=== PATIENT | male | born 1975 | race American Indian/Alaskan Native ===

== ENCOUNTER 2018-01-30 19:53 | Inpatient (IN) | payer OTHER ==
--- NOTE | 2018-01-30 20:14 | Emergency Department Report ---
- General Stated complaint: POSSIBLE STROKE Time Seen by Provider: 01/30/18 19:54 Source: patient, EMS Mode of arrival: Stretcher Limitations: Physical Limitation - History of Present Illness Initial comments: She is a 42-year-old male that presents emergency room possible strokelike symptoms and left-sided weakness and left-sided facial droop. EMS and the patient state that the last known well time was 1914. Patient denies chest pain shortness of breath. Patient states he is having difficulties walking. Patient states 7 difficulties moving his left side. Patient states he can move his right side normally but the left side is not moving as well. Patient denies headache. Patient denies dizziness and chills. Patient denies fever and abdominal pain. MD Complaint: focal weakness (sided weakness and left-sided facial droop) -: Sudden Location: [facility] Severity: severe Consistency: constant Improves with: none Worsens with: none Associated Symptoms: denies: chest pain, confusion, dark stools, diaphoresis, dysuria, easy bruising, fever/chills, headaches, loss of appetite, nausea/ vomiting, myalgias, rash, shortness of breath, syncope - Related Data Home Medications Medication Instructions Recorded Confirmed Last Taken Aspirin 325 mg PO QDAY 01/30/18 01/30/18 Unknown Benzonatate [Tessalon Perles] 100 mg PO TID PRN 01/30/18 01/30/18 Unknown Carvedilol 25 mg PO BID 01/30/18 01/30/18 Unknown ISOSORBIDE MONOnitrate [Imdur ER] 60 mg PO DAILY 01/30/18 01/30/18 Unknown Sacubitril/Valsartan [Entresto 97 1 each PO BID 01/30/18 01/30/18 Unknown mg-103 mg Tablet] hydrALAZINE [Apresoline] 25 mg PO TID 01/30/18 01/30/18 Unknown Previous Rx's Medication Instructions Recorded Last Taken Type Furosemide [Lasix TAB] 40 mg PO QDAY #30 tablet 11/23/15 Unknown Rx Insulin Glargine [Lantus VIAL] 5 units SUB-Q QAMDIAB #2 vial 11/23/15 Unknown Rx Insulin Glulisine [Apidra] 1 dose SUB-Q ACHS #1 vial 11/23/15 Unknown Rx Allergies Allergy/AdvReac Type Severity Reaction Status Date / Time No Known Allergies Allergy Verified 08/19/15 22:49 ED Review of Systems ROS: Stated complaint: POSSIBLE STROKE Other details as noted in HPI Constitutional: denies: chills, fever Eyes: denies: eye pain, eye discharge, vision change ENT: denies: ear pain, throat pain Respiratory: denies: cough, shortness of breath, wheezing Cardiovascular: denies: chest pain, palpitations Endocrine: no symptoms reported Gastrointestinal: denies: abdominal pain, nausea, diarrhea Genitourinary: denies: urgency, dysuria Musculoskeletal: denies: back pain, joint swelling, arthralgia Skin: denies: rash, lesions Neurological: denies: headache, weakness, paresthesias Psychiatric: denies: anxiety, depression Hematological/Lymphatic: denies: easy bleeding, easy bruising ED Past Medical Hx - Past Medical History Hx Hypertension: Yes Hx Congestive Heart Failure: Yes Hx Diabetes: Yes (2014) Hx Arthritis: Yes Hx Headaches / Migraines: No Hx Asthma: Yes Hx COPD: No - Social History Smoking Status: Never Smoker - Medications Home Medications: Home Medications Medication Instructions Recorded Confirmed Last Taken Type Furosemide [Lasix TAB] 40 mg PO QDAY #30 tablet 11/23/15 Unknown Rx Insulin Glargine [Lantus VIAL] 5 units SUB-Q QAMDIAB #2 vial 11/23/15 Unknown Rx Insulin Glulisine [Apidra] 1 dose SUB-Q ACHS #1 vial 11/23/15 Unknown Rx Aspirin 325 mg PO QDAY 01/30/18 01/30/18 Unknown History Benzonatate [Tessalon Perles] 100 mg PO TID PRN 01/30/18 01/30/18 Unknown History Carvedilol 25 mg PO BID 01/30/18 01/30/18 Unknown History ISOSORBIDE MONOnitrate [Imdur ER] 60 mg PO DAILY 01/30/18 01/30/18 Unknown History Sacubitril/Valsartan [Entresto 97 1 each PO BID 01/30/18 01/30/18 Unknown History mg-103 mg Tablet] hydrALAZINE [Apresoline] 25 mg PO TID 01/30/18 01/30/18 Unknown History ED Physical Exam - General Limitations: Physical Limitation General appearance: alert, in no apparent distress - Head Head exam: Present: atraumatic, normocephalic - Eye Eye exam: Present: normal appearance, PERRL Pupils: Present: normal accommodation - ENT ENT exam: Present: mucous membranes moist - Neck Neck exam: Present: normal inspection - Respiratory Respiratory exam: Present: normal lung sounds bilaterally. Absent: respiratory distress - Cardiovascular Cardiovascular Exam: Present: regular rate, normal rhythm. Absent: systolic murmur, diastolic murmur, rubs, gallop - GI/Abdominal GI/Abdominal exam: Present: soft, normal bowel sounds - Rectal Rectal exam: Present: deferred - Extremities Exam Extremities exam: Present: normal inspection - Back Exam Back exam: Present: normal inspection - Neurological Exam Neurological exam: Present: alert, oriented X3 - Psychiatric Psychiatric exam: Present: normal affect, normal mood - Skin Skin exam: Present: warm, dry, intact, normal color. Absent: rash - Assessment Assessment Interval: Baseline - Level of Consciousness 1a. Level of Consciousness: not alert, arousable - LOC Questions 1b. LOC Questions: answers correctly - LOC Command 1c. LOC Commands: performs tasks correctly - Best Gaze 2. Best Gaze: partial gaze palsy - Visual 3. Visual: no visual loss - Facial Palsy 4. Facial Palsy: partial paralysis - Motor Arm 5b. Motor Arm Right: no drift 5a. Motor Arm Left: no gravity effort - Motor Leg 6a. Motor Leg Left: drift 6b. Motor Leg Right: no drift - Limb Ataxia 7. Limb Ataxia: absent - Sensory 8. Sensory: mild/moderate sensory loss - Best Language 9. Best Language: no aphasia - Dysarthria 10. Dysarthria: mild/moderate dysarthria - Extinction and Inattention 11. Extinction/Inattention: no abnormality - Scoring Total Score: 10 Stroke Severity: Moderate Stroke ED Course Vital Signs 01/30/18 01/30/18 01/30/18 20:01 20:05 20:15 Pulse Rate 88 82 Respiratory 17 22 12 Rate Blood Pressure 203/127 233/164 Blood Pressure [Right] O2 Sat by Pulse 89 90 97 Oximetry 01/30/18 01/30/18 01/30/18 20:31 20:41 20:45 Pulse Rate 88 100 H 87 Respiratory 19 19 Rate Blood Pressure 233/166 233/166 175/112 Blood Pressure [Right] O2 Sat by Pulse 99 98 Oximetry 01/30/18 01/30/18 01/30/18 20:48 20:50 21:01 Pulse Rate 84 83 92 H Respiratory 18 Rate Blood Pressure 176/109 165/104 180/113 Blood Pressure [Right] O2 Sat by Pulse 98 Oximetry 01/30/18 01/30/18 01/30/18 21:29 21:40 21:45 Pulse Rate 111 H 96 H 87 Respiratory 20 18 17 Rate Blood Pressure 171/105 156/91 Blood Pressure 172/95 [Right] O2 Sat by Pulse 97 98 100 Oximetry 01/30/18 01/30/18 01/30/18 22:00 22:15 22:21 Pulse Rate 87 88 81 Respiratory 17 20 17 Rate Blood Pressure 158/108 165/109 165/107 Blood Pressure [Right] O2 Sat by Pulse 99 94 99 Oximetry 01/30/18 01/30/18 01/30/18 22:25 22:30 22:35 Pulse Rate 80 81 80 Respiratory 17 16 16 Rate Blood Pressure 165/108 168/115 169/114 Blood Pressure [Right] O2 Sat by Pulse 100 100 100 Oximetry 01/30/18 01/30/18 22:40 22:45 Pulse Rate 83 78 Respiratory 15 16 Rate Blood Pressure 164/109 162/112 Blood Pressure [Right] O2 Sat by Pulse 99 97 Oximetry - Reevaluation(s) Reevaluation #1: tele- neuro consulted. Discussed case with Dr. Ortega. Dr. Ortega to examine patient via camera. Dr. Ortega given full report. Patient failed swallow study. 01/30/18 20:00 Reevaluation #2: Dr ortega and i discussed risk and benefits of tpa. Family and patient agree with TPA and want to move with TPA. dr ortega recommends tpa after bp below 180/110 and CTA head and neck. 01/30/18 20:30 Reevaluation #3: Nicardipine drip started. We'll keep blood pressure less than 180/110. But no lower than 160/90 01/30/182036 TPA bolus started. See nurse's notes. Patient to have CTA done 01/30/182047 Reevaluation #4: No change in neurologic status at this time. Patient to be admitted to the hospitalist service for further evaluation treatment. 01/30/18 22:11 - Consultations Consultation #1: Discussed case with Dr. Ortega, neurology. She recommends tPA. She also recommends keeping his blood pressure between 160 - 180/90 -110 with Cardene drip. After bolus of TPA, patient to have CTA head and neck. 01/30/18 20:00 Consultation #2: Dr. Ortega called CTA of head and neck results. Dr. Ortega recommends normal admission into the hospital for further stroke evaluation. 01/30/18 22:09 Consultation #3: Hospitalist consulted for admission. Hospitalist to admit patient. Recommendations and case discussed fully with hospitalist.Dr saini to assume care. 01/30/18 22:12 ED Medical Decision Making - Lab Data Result diagrams: 01/30/18 20:09 01/30/18 20:33 - EKG Data -: EKG Interpreted by Co EKG shows normal: sinus rhythm, intervals, QRS complexes, ST-T waves Rate: normal - EKG Data Interpretation: LVH, other (left axis dev. ) - Radiology Data Radiology results: report reviewed CT head negative. Radiologist called at 2019 with results. CTA of the head and neck are negative as well. - Medical Decision Making He is a 42-year-old male presents emergency room with left-sided weakness and found to having an acute stroke. Patient to be admitted to the hospitalist service for further evaluation. Patient was given TPA during his course in the ER. Patient was also started on Cardene prior to giving her TPA bolus and drip. - Differential Diagnosis tia/cva. dehydration. ams. Critical Care Time: Yes Critical care attestation.: If time is entered above; I have spent that time in minutes in the direct care of this critically ill patient, excluding procedure time. Critical Care Time: 45 minutes spent for cc time ED Disposition Clinical Impression: Left-sided weakness, Malignant hypertension CVA (cerebral vascular accident) Qualifiers: CVA mechanism: unspecified Qualified Code(s): I63.9 - Cerebral infarction, unspecified Disposition: OP ADMIT IP TO THIS HOSP Is pt being admited?: Yes Does the pt Need Aspirin: No Condition: Critical Instructions: Hypertension (ED) Time of Disposition: 22:16
[2018-01-30] MEDS ORDERED: LOPRESSOR IV ONE (20:19)
--- NOTE | 2018-01-30 20:24 | Cat Scan Report ---
FINAL REPORT EXAM: CT HEAD/BRAIN WO CON HISTORY: neuro deficits < 6hrs or sx present upon awakening COMPARISON: None available. TECHNIQUE: Axial images obtained skull base through vertex. FINDINGS: No acute intracranial hemorrhage, midline shift or pathologic extra axial fluid collection. Ventricles and cisterns are normal in size and configuration for the patient's age. Soto-white differentiation preserved. Calvarium grossly intact. No hyperdense MCA sign or loss of the subinsular cortex. Ocular globes are grossly unremarkable. Moderate air-fluid level right maxillary sinus. Mastoid air cells are clear. IMPRESSION: No grossly acute intracranial abnormality. No evidence of acute transcortical infarct or intracranial hemorrhage by CT at this time. If clinical concern for acute intracranial process remains, MRI would be suggested for further evaluation. LALY OSR notified of results on January 30, 2018 at 2016 hours EST.
[2018-01-30] MEDS ORDERED: ACTIVASE ONE (20:26)
[2018-01-30 20:29] LABS: BUN/Creatinine Ratio 11; Blood Urea Nitrogen 12 mg/dL (9-20); Calcium 10.3 mg/dL (8.4-10.2); Hemolysis Index 28
[2018-01-30 20:35] LABS: Basophils # (Auto) 0.1 K/mm3 (0.0-0.1); Basophils % (Auto) 0.8 % (0.0-1.8); Eosinophils # (Auto) 0.1 K/mm3 (0.0-0.4); Eosinophils % (Auto) 1.4 % (0.0-4.3); Hematocrit 50.4 % (35.5-45.6); Lymphocytes # (Auto) 2.1 K/mm3 (1.2-5.4); Lymphocytes % (Auto) 28.1 % (13.4-35.0); Mean Corpuscular HGB Conc 34 % (32-34); Mean Corpuscular Hemoglobin 28 pg (28-32); Mean Corpuscular Volume 83 fl (84-94); Monocytes # (Auto) 0.8 K/mm3 (0.0-0.8); Monocytes % (Auto) 10.8 % (0.0-7.3); Platelet Count 248 K/mm3 (140-440); Red Blood Count 6.08 M/mm3 (3.65-5.03)
[2018-01-30 20:37] LABS: INR 1.01 (0.87-1.13); Partial Thromboplastin Time 20.9 Sec. (24.2-36.6)
[2018-01-30] MEDS: CARDENE 50 MG in NACL 0.9% 250ML 230 ML IV SCH (20:37)
[2018-01-30] MEDS: LOPRESSOR IV ONE ×2 (20:37→20:41)
[2018-01-30] MEDS ORDERED: NACL 0.9% 250ML 250 ML ONE (20:44)
[2018-01-30] MEDS ORDERED: ACTIVASE IV ONE ×2 (20:48)
[2018-01-30] MEDS ORDERED: NACL 0.9% IV ONE (20:48)
[2018-01-30 21:05] LABS: Alanine Aminotransferase 18 units/L (7-56); Albumin 3.9 g/dL (3.9-5); BUN/Creatinine Ratio 12; Blood Urea Nitrogen 13 mg/dL (9-20); Calcium 10.5 mg/dL (8.4-10.2); Hemolysis Index 35
--- NOTE | 2018-01-30 22:00 | Cat Scan Report ---
FINAL REPORT EXAM: CT ANGIO NECK HISTORY: cva COMPARISON: CT of the chest from November 2015. TECHNIQUE: Contiguous axial images were obtained. Additional sagittal and coronal reformatted images were obtained. Administration of IV contrast given per institution protocol. Images submitted for interpretation. Max intensity projection images. 100 cc Omnipaque 350. FINDINGS: Extracranial portions of the common carotid, internal carotid, vertebral arteries widely patent. Codominant vertebral arteries. Carotid bifurcations are widely patent. Slight tortuous course of the internal carotid arteries. Spaces of the neck are preserved. Upper airway is patent. No enlarged cervical lymph nodes. Salivary glands and thyroid gland are unremarkable. Patchy linear densities in the visualized upper lungs which may reflect areas of atelectasis. Minimal degenerative changes of the cervical spine. Multiple enlarged right mediastinal lymph nodes. For example there is a right paratracheal lymph node measuring 11 x 13 millimeters. Similar findings seen on prior chest CT from November 2015. IMPRESSION: Negative CTA of the neck. Partial visualization of enlarged mediastinal lymph nodes. Similar findings seen on the CT of the chest from 2016. These lymph nodes could be reactive. Neoplastic process such as lymphoma is not excluded.
--- NOTE | 2018-01-30 22:02 | Cat Scan Report ---
FINAL REPORT EXAM: CT ANGIO HEAD HISTORY: cva COMPARISON: None available. TECHNIQUE: Contiguous axial images were obtained. Additional sagittal and coronal reformatted images were obtained. Administration of IV contrast given per institution protocol. Images submitted for interpretation. Max intensity projection images. FINDINGS: Petrous, cavernous, supraclinoid portions of the internal carotid arteries widely patent. origins of the bilateral posterior communicating arteries. Small P1 segments remain. Dominance of the anterior circulation. Decrease caliber the vertebral basilar system on a congenital basis. Intracranial portions the vertebral arteries and basilar artery are widely patent. Symmetric branching and opacification of the anterior, middle, posterior cerebral arteries. Gross normal opacification major dural venous sinuses. No area of abnormal hypervascular enhancement within the brain parenchyma. IMPRESSION: Negative CTA of the head.
[2018-01-30] MEDS ORDERED: TYLENOL PR PRN (23:20)
--- NOTE | 2018-01-31 06:36 | History and Physical Report ---
CHIEF COMPLAINT: Weakness of the left side of the body and left-sided facial drooping. HISTORY OF PRESENTING ILLNESS: The patient is a 42-year-old male that came to the Emergency Room with left-sided weakness and drooping of the left side of the face. The patient was well until the time of about 191 when these symptoms occur. There was no history of shortness of breath. No history of chest pain. The patient also noted difficulty with walking and had difficulty moving his left side of the body, but was able to move his right side normally. There was no history of headache, no history of dizziness, fever or chills and also there was no history of change in mental status. The patient was seen in the Emergency Room, evaluated with Tele-Neurology consult and patient received TPA treatment. PAST MEDICAL HISTORY: Pertinent for hypertension, congestive heart failure, diabetes mellitus, arthritis, and asthma. PAST SURGICAL HISTORY: Unremarkable. FAMILY HISTORY: Noncontributory. SOCIAL HISTORY: The patient does not smoke, does not drink alcohol, and does not use illicit drugs. MEDICATIONS: The patient is on Lasix 40 mg by mouth daily, Lantus insulin 5 units subq q.a.m. and also insulin glulisine or Apidra subq before meals and at bedtime. The patient is also on aspirin 325 mg by mouth daily, benzonatate 100 mg 3 times daily, carvedilol 25 mg by mouth twice daily, isosorbide mononitrate or Imdur ER 60 mg by mouth daily, (sacubitril/valsartan) Entresto 97 mg-103 mg one by mouth twice daily, hydralazine 25 mg by mouth 3 times daily. ALLERGIES: There are no known drug allergies. REVIEW OF SYSTEMS: CONSTITUTIONAL: There is no fever, no chills, no diaphoresis. HEENT: There is no headache or sore throat. CARDIOVASCULAR SYSTEM: There is no chest pain or orthopnea. RESPIRATORY SYSTEM: There is no shortness of breath or cough. GASTROINTESTINAL SYSTEM: There is no nausea, no vomiting, no abdominal pain, diarrhea, or constipation. NEUROLOGICAL SYSTEM: Weakness of the left side of the body noted, drooling of the left side of the face noted. No change in mental status. MUSCULOSKELETAL SYSTEM: There is no joint pain or swelling. DERMATOLOGICAL SYSTEM: There is no skin rash or itching. GENITOURINARY SYSTEM: There is no dysuria, hematuria, or flank pain. Rest of system review is normal. PHYSICAL EXAMINATION: GENERAL: At the time of exam, the patient was sleeping on his bed quietly and not in acute distress. VITAL SIGNS: At the time of initial presentation, temperature of 88, pulse of 17, blood pressure 203/127, O2 sat of 89% on room air. HEENT: Show pupils to be equal, round, and reactive to light and accommodation. Extraocular muscles are intact. NECK: Supple with no JVD or carotid bruit. CARDIOVASCULAR SYSTEM: Show normal first and second heart sounds with no gallops or murmurs. RESPIRATORY SYSTEM: Show good air entry on both sides of the lungs with no abnormal breath sounds. GASTROINTESTINAL SYSTEM: Show abdomen to be full, soft, nontender with no organomegaly or rigidity. NEUROLOGIC: Shows weakness of the left side of the body compared to the right with grade 4/6 on the left side compared to the 6/6 on the right and sensory function was intact. MUSCULOSKELETAL SYSTEM: Show no joint swelling or tenderness. DERMATOLOGICAL SYSTEM: Show no skin rash. GENITOURINARY SYSTEM: Showing no costovertebral angle tenderness. PERTINENT LABORATORY DATA AND IMAGING STUDIES: The patient has CBC done with normal white count, high hemoglobin of 17, and high hematocrit of 50.4 with low MCV of 83 with CBC differential showing high monocyte count of 10.8%. Coagulation studies were unremarkable. Chemistry shows elevated glucose of 139. The patient's calcium level is high with a value of 10.5. IMAGING STUDIES: The patient has CT of the head without contrast done that shows no grossly acute intracranial abnormality. There is no evidence of acute transcortical infarct or intracranial hemorrhage by CT at this time. The patient also had CT angiogram of the head and neck done that came back negative for any abnormality. DIAGNOSES: 1. Left-sided weakness. 2. Hypercalcemia. 3. Polycythemia. PLAN OF CARE: 1. The patient will have the MRI of the brain done this morning without contrast. 2. The patient will have Neurology consult with Dr. Cervantes for treatment of left-sided weakness and left facial drooping with TPA treatment. 3. The patient will have bilateral carotid Doppler done this morning. 4. The patient will have complete 2D echo done this morning. 5. The patient will have Hematology consult with Dr. Maxwell for polycythemia. 6. The patient will be on sequential compressive device for DVT prophylaxis. 7. The patient will have Physical Therapy and Speech Therapy consult for evaluation and treatment. 8. The patient will be n.p.o. until he passes the swallow test. 9. The patient will be on oxygen by the nasal cannula at 2 liters per minute. 10. The patient will continue Cardene drip started in the Emergency Room with instructions to keep systolic blood pressure between 160 and 180 according to the Tele-Neurology recommendation and keep the diastolic pressure at above 110. 11. The patient will be on Tylenol suppository 650 mg rectally every 4 hours for fever and headache. JOB# [id number] OCN/NTS
--- NOTE | 2018-01-31 09:09 | Hem/Onc Consultation ---
History of Present Illness - Reason for Consult Consult date: 01/31/18 - History of Present Illness dictated. We will follow hemoglobin and hematocrit. Check erythropoietin level and Jak2 Medications and Allergies Allergies Allergy/AdvReac Type Severity Reaction Status Date / Time No Known Allergies Allergy Verified 08/19/15 22:49 Home Medications Medication Instructions Recorded Confirmed Last Taken Type Furosemide [Lasix TAB] 40 mg PO QDAY #30 tablet 11/23/15 01/30/18 Unknown Rx Insulin Glargine [Lantus VIAL] 5 units SUB-Q QAMDIAB #2 vial 11/23/15 01/30/18 Unknown Rx Insulin Glulisine [Apidra] 1 dose SUB-Q ACHS #1 vial 11/23/15 01/30/18 Unknown Rx Aspirin 325 mg PO QDAY 01/30/18 01/30/18 Unknown History Benzonatate [Tessalon Perles] 100 mg PO TID PRN 01/30/18 01/30/18 Unknown History Carvedilol 25 mg PO BID 01/30/18 01/30/18 Unknown History ISOSORBIDE MONOnitrate [Imdur ER] 60 mg PO DAILY 01/30/18 01/30/18 Unknown History Sacubitril/Valsartan [Entresto 97 1 each PO BID 01/30/18 01/30/18 Unknown History mg-103 mg Tablet] hydrALAZINE [Apresoline] 25 mg PO TID 01/30/18 01/30/18 Unknown History Active Meds: Active Medications Acetaminophen (Tylenol) 650 mg AR Q4H PRN PRN Reason: Fever >101 Nicardipine HCl 50 mg/ Sodium (Chloride) 250 mls @ 25 mls/hr IV TITR TUAN; Protocol Last Titration: 01/31/18 08:05 Dose: 2.5 mg/hr, 12.5 mls/hr Exam - Constitutional Vitals: Last Vital Signs Temp 98.5 F 01/31/18 08:06 Pulse 78 01/31/18 08:06 Resp 20 01/31/18 08:06 BP 177/122 01/31/18 08:06 Pulse Ox 98 01/31/18 08:06 Results - Labs lab Results: Laboratory Results - last 24 hr 01/30/18 01/30/18 01/30/18 20:09 20:09 20:09 WBC 7.6 RBC 6.08 H Hgb 17.0 H Hct 50.4 H MCV 83 L MCH 28 MCHC 34 RDW 16.0 H Plt Count 248 Lymph % (Auto) 28.1 [place] % (Auto) 10.8 H Eos % (Auto) 1.4 Baso % (Auto) 0.8 Lymph # 2.1 [place] # 0.8 Eos # 0.1 Baso # 0.1 Seg Neutrophils % 58.9 Seg Neutrophils # 4.5 PT 13.8 INR 1.01 APTT 20.9 L Thrombin Time Sodium 142 Potassium 4.1 Chloride 104.5 Carbon Dioxide 26 Anion Gap 16 BUN 12 Creatinine 1.1 Estimated GFR > 60 BUN/Creatinine Ratio 11 Glucose 138 H POC Glucose Calcium 10.3 H Total Bilirubin AST ALT Alkaline Phosphatase Troponin T < 0.010 Total Protein Albumin Albumin/Globulin Ratio 01/30/18 01/30/18 01/30/18 20:09 20:09 20:33 WBC RBC Hgb Hct MCV MCH MCHC RDW Plt Count Lymph % (Auto) [place] % (Auto) Eos % (Auto) Baso % (Auto) Lymph # [place] # Eos # Baso # Seg Neutrophils % Seg Neutrophils # PT INR APTT Thrombin Time 17.4 Sodium 143 Potassium 4.3 Chloride 103.9 Carbon Dioxide 26 Anion Gap 17 BUN 13 Creatinine 1.1 Estimated GFR > 60 BUN/Creatinine Ratio 12 Glucose 139 H POC Glucose 139 H Calcium 10.5 H Total Bilirubin 1.10 AST 15 ALT 18 Alkaline Phosphatase 42 Troponin T Total Protein 5.9 L Albumin 3.9 Albumin/Globulin Ratio 2.0 01/31/18 01/31/18 07:00 08:05 WBC RBC Hgb Hct MCV MCH MCHC RDW Plt Count Lymph % (Auto) [place] % (Auto) Eos % (Auto) Baso % (Auto) Lymph # [place] # Eos # Baso # Seg Neutrophils % Seg Neutrophils # PT INR APTT Thrombin Time Sodium Potassium Chloride Carbon Dioxide Anion Gap BUN Creatinine Estimated GFR BUN/Creatinine Ratio Glucose POC Glucose 143 H 174 H Calcium Total Bilirubin AST ALT Alkaline Phosphatase Troponin T Total Protein Albumin Albumin/Globulin Ratio
--- NOTE | 2018-01-31 11:00 | Consultation ---
REFERRING PHYSICIAN: Varghese Davidson MD REASON FOR CONSULTATION: Erythrocytosis and CVA. HISTORY OF PRESENT ILLNESS: The patient is a 42-year-old male who presented to the hospital with left-sided weakness and drooping of the left side of the face. He had been well until about 7:15 last evening when the symptoms occurred. No chest pains, no shortness of breath. PAST MEDICAL HISTORY: He has history of hypertension, congestive heart failure, diabetes, arthritis, and asthma. SOCIAL HISTORY: He does not smoke or drink. He denies any history of taking any hormones. He was found to have a hemoglobin of 17, hematocrit of 50 because of erythrocytosis. Hematology consult was called. The patient did receive TPA today. He denies any previous history of blood disorders. PHYSICAL EXAMINATION: GENERAL: The patient is lying down, seems to be drowsy. MUSCULOSKELETAL: Examination reveals left-sided weakness of the upper extremity and lower extremity, upper more than lower. CARDIOVASCULAR: Regular. ABDOMEN: Soft. EXTREMITIES: No clubbing, cyanosis, or edema. PERTINENT LABORATORIES: Hemoglobin 17, hematocrit 50.4, white count 7.6, platelets 248,000. PT, PTT within normal limits. Chemistries within normal limits except creatinine of 1.1, BUN 13. ASSESSMENT: Erythrocytosis, mild. PLAN: At this time, we will follow counts. In the meantime, check erythropoietin level and JAK2 analysis. Not a candidate for phlebotomy currently, but we will closely monitor. JOB# [id number] [facility]/EULA
--- NOTE | 2018-01-31 14:19 | Consultation ---
History of Present Illness Consult date: 01/31/18 Reason for consult: other (stroke) History of present illness: Called to evaluate case of a 42-year-old -Cypriot male that presents emergency room possible stroke like symptoms and left-sided weakness and left- sided facial droop. Her nose, "EMS and the patient state that the last known well time was 1914. Patient denies chest pain shortness of breath. Patient states he is having difficulties walking. Patient states difficulties moving his left side. Patient states he can move his right side normally but the left side is not moving as well. Patient denies headache. Patient denies dizziness and chills. Patient denies fever and abdominal pain". Patient received TPA at the ER after developing neurology consultation and was started before this on a Cardene drip for hypertensive emergency management. Initial head and neck CT showed no evidence of stroke. He is being scheduled to get an MRI next I'm seeing the patient after his admission to the ICU for ICU care. His states that his symptoms , were noted when she woke him up about 10:15 last night. He had no prior history of neurological events. I noticed during my interview, that the patient is snoring when he sleeps. I asked about this and the patient's states that, he completed recently testing for sleep apnea and was ordered a CPAP at another facility. This was recent and he does not yet have his CPAP machine. Initial laboratory screening also was remarkable for erythrocytosis, being evaluated by hematology oncology. His blood pressure has been very unstable-"high", per . He is also diabetic. Sleep reported as poor with some persistent sleepiness or tiredness. Past History Past Medical History: diabetes, hypertension, other (sleep apnea) Social history: Family history: CAD, diabetes, hypertension Medications and Allergies Allergies Allergy/AdvReac Type Severity Reaction Status Date / Time No Known Allergies Allergy Verified 08/19/15 22:49 Home Medications Medication Instructions Recorded Confirmed Last Taken Type Furosemide [Lasix TAB] 40 mg PO QDAY #30 tablet 11/23/15 01/30/18 Unknown Rx Insulin Glargine [Lantus VIAL] 5 units SUB-Q QAMDIAB #2 vial 11/23/15 01/30/18 Unknown Rx Insulin Glulisine [Apidra] 1 dose SUB-Q ACHS #1 vial 11/23/15 01/30/18 Unknown Rx Aspirin 325 mg PO QDAY 01/30/18 01/30/18 Unknown History Benzonatate [Tessalon Perles] 100 mg PO TID PRN 01/30/18 01/30/18 Unknown History Carvedilol 25 mg PO BID 01/30/18 01/30/18 Unknown History ISOSORBIDE MONOnitrate [Imdur ER] 60 mg PO DAILY 01/30/18 01/30/18 Unknown History Sacubitril/Valsartan [Entresto 97 1 each PO BID 01/30/18 01/30/18 Unknown History mg-103 mg Tablet] hydrALAZINE [Apresoline] 25 mg PO TID 01/30/18 01/30/18 Unknown History Active Meds: Active Medications Acetaminophen (Tylenol) 650 mg ME Q4H PRN PRN Reason: Fever >101 Nicardipine HCl 50 mg/ Sodium (Chloride) 250 mls @ 25 mls/hr IV TITR TUAN; Protocol Last Titration: 01/31/18 12:49 Dose: 2.5 mg/hr, 12.5 mls/hr Review of Systems Constitutional: weight gain Ears, nose, mouth and throat: ear pain, ear discharge Cardiovascular: orthopnea, no chest pain Respiratory: sleep apnea, no cough, no cough with sputum, no excessive sputum, no hemoptysis, no shortness of breath Physical Examination Vital signs: Vital Signs Pulse Resp BP Pulse Ox 88 17 203/127 89 01/30/18 20:01 01/30/18 20:01 01/30/18 20:01 01/30/18 20:01 General appearance: no acute distress, asleep, other (morbidly obese) Eyes: injected ENT: oropharynx moist, other (Mallampati 4) Neck: supple, no JVD, other (large neck) Ascultation: Bilateral: clear, diminished breath sounds Cardiovascular: regular rate and rhythm Gastrointestinal: normoactive bowel sounds, non-distended Integumentary: normal Extremities: no cyanosis, no edema pupils equal and round, CN II-XII normal, other (asked sleep but easily arousable and able to answer my questions. Able to raise both extremities on command, and fac engineer appear to be equal. flares toes correctly) Results - Laboratory Findings CBC and BMP: 01/30/18 20:09 01/30/18 20:33 PT/INR, D-dimer PT 13.8 Sec. (12.2-14.9) 01/30/18 20:09 INR 1.01 (0.87-1.13) 01/30/18 20:09 Abnormal lab findings: Abnormal Labs 01/30/18 01/30/18 01/30/18 20:09 20:09 20:09 RBC 6.08 H Hgb 17.0 H Hct 50.4 H MCV 83 L RDW 16.0 H [place] % (Auto) 10.8 H APTT 20.9 L Glucose 138 H POC Glucose Calcium 10.3 H Total Protein 01/30/18 01/30/18 01/31/18 20:09 20:33 07:00 RBC Hgb Hct MCV RDW [place] % (Auto) APTT Glucose 139 H POC Glucose 139 H 143 H Calcium 10.5 H Total Protein 5.9 L 01/31/18 01/31/18 08:05 12:28 RBC Hgb Hct MCV RDW [place] % (Auto) APTT Glucose POC Glucose 174 H 144 H Calcium Total Protein - Diagnostic Findings CT scan - chest: report reviewed Assessment and Plan Acute stroke. Status post TPA. Etiology pretibial hypertensive origin/ diabetes. The patient had strong history of sleep apnea Hypertensive emergency. Improved. Currently on Cardene drip LESLEY. May be primary underlying factor and/or trigger of the other events. Erythrocytosis. Concern for chronic hypoxemic process, possibly related to sleep apnea. I believe,concern for obesity hypoventilation syndrome is low, if his bicarbonate level < 28 with LESLEY Diabetes mellitus Morbid obesity Recommendations" Maintain adequate BP control. Maintain systolic blood pressure no more than 180 , diastolic no more than 110 initially,avoid diastolic below 90 millimeters hg Blood sugar control between 120 and 180 mg per DL Continue oxygen support I asked the patient to give activity number of the CPAP lab to verify her CPAP titration level. If this is not available, I will instruct respiratory to use CPAP or BiPAP at night to minimize sleep apnea Continue close neurological monitoring MRI of the brain DVT prophylaxis Aspiration precautions Neurology follow-up Speech, swallowing evaluation in morning Discussed with patient and in detail. All questions answered. Thanks Critical care time was 40 minutes of [id number] evaluation and coordination of care
--- NOTE | 2018-01-31 14:47 | Event Note ---
Date: 01/31/18 Patient seen and examined, continue current care. Continue icu Care.
[2018-01-31 18:26] LABS: Basophils # (Auto) 0.1 K/mm3 (0.0-0.1); Basophils % (Auto) 0.6 % (0.0-1.8); Eosinophils % (Auto) 0.4 % (0.0-4.3); Hematocrit 56.2 % (35.5-45.6); Hemoglobin 18.3 gm/dl (11.8-15.2); Lymphocytes # (Auto) 1.2 K/mm3 (1.2-5.4); Lymphocytes % (Auto) 12.4 % (13.4-35.0); Mean Corpuscular HGB Conc 33 % (32-34); Mean Corpuscular Hemoglobin 27 pg (28-32); Mean Corpuscular Volume 84 fl (84-94); Monocytes # (Auto) 0.7 K/mm3 (0.0-0.8); Monocytes % (Auto) 7.5 % (0.0-7.3); Platelet Count 246 K/mm3 (140-440); Red Cell Distribution Width 16.2 % (13.2-15.2)
--- NOTE | 2018-01-31 18:39 | History and Physical Report ---
History of Present Illness Date of examination: 01/31/18 Date of admission: 01/30/18 23:05 Chief complaint: FOCUSED NEUROLOGY CONSULT NOTE CC: I am asked to see this 42 AA M for left sided weakness, admitted 01/30 and given tPA Rx per teleneuro on that date. HPI: He has an Hx of HTN, IDDM2, CHF. His initial had CT was negative for bleed. CTA head and neck were both unremarkable w no vessel cut offs. Echo is pending. MRI not done yet. No prior hx of focal neuro deficit. ROS: aside from the above an 11 point ROS is negative SH/FH reviewed but re-copied MEDS/ALLERGIES - see chart. NEURO EXAM: alert but drowsy, oriented x 3, speech fluent and clear, follows commands quickly and accurately CN: 2 - 12 nl, EOM full without nystamus, Pupils both 4 mm diam and react to bright light stim, no facial weakness MOT: nl strength throughout prox and dist save for left hand where brush sander in 4+/5 SENS: denies loss to touch throughout CEREB: fnt nl on right, sl clumbsy on left DTRs: uniformly absent UE and LE, great toes moot to plantar stim GAIt: not tested due to fall risk Dx IMP: 1. Right cerebral infarct, acute (right MCA distribution), s/p tPA Rx with currently near normal neuro exam 2. IDDM2 3. Minimal elevation of HB 17 and HCT 50, doubt sig of this re dx 1. above RECC: 1. Agree re mgt plan 2. We await echo, and MRI head. 3. Go from there. Briana Goldberg MD Past History Past Medical History: diabetes, hypertension, other (sleep apnea) Social history: Family history: CAD, diabetes, hypertension Medications and Allergies Allergies Allergy/AdvReac Type Severity Reaction Status Date / Time No Known Allergies Allergy Verified 08/19/15 22:49 Home Medications Medication Instructions Recorded Confirmed Last Taken Type Furosemide [Lasix TAB] 40 mg PO QDAY #30 tablet 11/23/15 01/30/18 Unknown Rx Insulin Glargine [Lantus VIAL] 5 units SUB-Q QAMDIAB #2 vial 11/23/15 01/30/18 Unknown Rx Insulin Glulisine [Apidra] 1 dose SUB-Q ACHS #1 vial 11/23/15 01/30/18 Unknown Rx Aspirin 325 mg PO QDAY 01/30/18 01/30/18 Unknown History Benzonatate [Tessalon Perles] 100 mg PO TID PRN 01/30/18 01/30/18 Unknown History Carvedilol 25 mg PO BID 01/30/18 01/30/18 Unknown History ISOSORBIDE MONOnitrate [Imdur ER] 60 mg PO DAILY 01/30/18 01/30/18 Unknown History Sacubitril/Valsartan [Entresto 97 1 each PO BID 01/30/18 01/30/18 Unknown History mg-103 mg Tablet] hydrALAZINE [Apresoline] 25 mg PO TID 01/30/18 01/30/18 Unknown History Active Meds: Active Medications Acetaminophen (Tylenol) 650 mg PA Q4H PRN PRN Reason: Fever >101 Nicardipine HCl 50 mg/ Sodium (Chloride) 250 mls @ 25 mls/hr IV TITR TUAN; Protocol Last Titration: 01/31/18 12:49 Dose: 2.5 mg/hr, 12.5 mls/hr Physical Examination - Vital Signs Vital Signs: Vital Signs Pulse Resp BP Pulse Ox 88 17 203/127 89 01/30/18 20:01 01/30/18 20:01 01/30/18 20:01 01/30/18 20:01 Results - Laboratory Findings CBC and BMP: 01/30/18 20:09 01/30/18 20:33 Abnormal Lab Findings: Abnormal Labs 01/30/18 01/30/18 01/30/18 20:09 20:09 20:09 RBC 6.08 H Hgb 17.0 H Hct 50.4 H MCV 83 L RDW 16.0 H [place] % (Auto) 10.8 H APTT 20.9 L Glucose 138 H POC Glucose Calcium 10.3 H Total Protein 01/30/18 01/30/18 01/31/18 20:09 20:33 07:00 RBC Hgb Hct MCV RDW [place] % (Auto) APTT Glucose 139 H POC Glucose 139 H 143 H Calcium 10.5 H Total Protein 5.9 L 01/31/18 01/31/18 01/31/18 08:05 12:28 17:09 RBC Hgb Hct MCV RDW [place] % (Auto) APTT Glucose POC Glucose 174 H 144 H 156 H Calcium Total Protein
[2018-01-31] MEDS: CARDENE 50 MG in NACL 0.9% 250ML 230 ML IV SCH (22:34)
[2018-02-01] MEDS: CARDENE 50 MG in NACL 0.9% 250ML 230 ML IV SCH (04:31)
[2018-02-01 04:45] LABS: Basophils % (Auto) 0.5 % (0.0-1.8); Eosinophils % (Auto) 0.4 % (0.0-4.3); Hematocrit 54.5 % (35.5-45.6); Hemoglobin 18.1 gm/dl (11.8-15.2); Lymphocytes # (Auto) 1.4 K/mm3 (1.2-5.4); Mean Corpuscular HGB Conc 33 % (32-34); Mean Corpuscular Hemoglobin 28 pg (28-32); Mean Corpuscular Volume 84 fl (84-94); Monocytes % (Auto) 9.4 % (0.0-7.3); Platelet Count 263 K/mm3 (140-440); Red Blood Count 6.48 M/mm3 (3.65-5.03); Red Cell Distribution Width 15.9 % (13.2-15.2)
[2018-02-01 05:06] LABS: BUN/Creatinine Ratio 11; Blood Urea Nitrogen 12 mg/dL (9-20); Calcium 10.1 mg/dL (8.4-10.2); Hemolysis Index 4
--- NOTE | 2018-02-01 08:56 | Hem/Onc Progress Note ---
Assessment and Plan Patient's hemoglobin stable. Currently no role for phlebotomy. cont supportive care as per neurology. Patient status post TPA for stroke Subjective Date of service: 02/01/18 Interval history: Patient looks better. Still sleepy. Objective - Constitutional Vitals: Last Vital Signs Temp 98.6 F 02/01/18 00:19 Pulse 83 02/01/18 06:30 Resp 15 02/01/18 06:30 BP 163/101 02/01/18 06:30 Pulse Ox 97 02/01/18 08:11 Performance status: 3-limited selfcare - Neck Neck: supple - Respiratory Respiratory effort: Positive: normal - Cardiovascular Rhythm: regular - Gastrointestinal General gastrointestinal: Present: soft - Neurologic Neurologic: other (left-sided weakness improving) - Labs Lab Results: Laboratory Results - last 24 hr 01/31/18 01/31/18 01/31/18 12:28 17:09 18:09 WBC 10.0 RBC 6.70 H Hgb 18.3 H Hct 56.2 H MCV 84 MCH 27 L MCHC 33 RDW 16.2 H Plt Count 246 Lymph % (Auto) 12.4 L [place] % (Auto) 7.5 H Eos % (Auto) 0.4 Baso % (Auto) 0.6 Lymph # 1.2 [place] # 0.7 Eos # 0.0 Baso # 0.1 Seg Neutrophils % 79.1 H Seg Neutrophils # 7.9 H Sodium Potassium Chloride Carbon Dioxide Anion Gap BUN Creatinine Estimated GFR BUN/Creatinine Ratio Glucose POC Glucose 144 H 156 H Calcium 02/01/18 02/01/18 02/01/18 04:00 04:00 08:03 WBC 10.5 RBC 6.48 H Hgb 18.1 H Hct 54.5 H MCV 84 MCH 28 MCHC 33 RDW 15.9 H Plt Count 263 Lymph % (Auto) 13.0 L [place] % (Auto) 9.4 H Eos % (Auto) 0.4 Baso % (Auto) 0.5 Lymph # 1.4 [place] # 1.0 H Eos # 0.0 Baso # 0.0 Seg Neutrophils % 76.7 H Seg Neutrophils # 8.1 H Sodium 143 Potassium 3.9 Chloride 102.7 Carbon Dioxide 26 Anion Gap 18 BUN 12 Creatinine 1.1 Estimated GFR > 60 BUN/Creatinine Ratio 11 Glucose 177 H POC Glucose 158 H Calcium 10.1
--- NOTE | 2018-02-01 10:00 | Progress Note ---
Assessment and Plan Acute stroke. Status post TPA. Etiology pretibial hypertensive origin/ diabetes. The patient had strong history of sleep apnea Hypertensive emergency. Improved. Currently on Cardene drip LESLEY. May be primary underlying factor and/or trigger of the other events. Erythrocytosis. Concern for chronic hypoxemic process, possibly related to sleep apnea. I believe,concern for obesity hypoventilation syndrome is low, if his bicarbonate level < 28 with LESLEY Diabetes mellitus Morbid obesity Recommendations Maintain adequate BP control. Maintain systolic blood pressure no more than 180 , diastolic no more than 110 initially,avoid diastolic below 90 millimeters hg Blood sugar control between 120 and 180 mg per DL Continue oxygen support CPAP at night perlab CPAP titration level. If this is not available, I will instruct respiratory to use CPAP or BiPAP at night to minimize sleep apnea.No issues last night Continue close neurological monitoring MRI of the brain DVT prophylaxis Aspiration precautions Neurology follow-up Speech, swallowing evaluation Discussed with patient and in detail. Critical care time was 31 minutes of [id number] evaluation and coordination of care Subjective Date of service: 02/01/18 Principal diagnosis: Stroke, erythrocytosis,LESLEY,DM Objective Vital Signs - 12hr 01/31/18 01/31/18 01/31/18 22:00 22:10 22:20 Temperature Pulse Rate 82 79 76 Respiratory 16 18 15 Rate Blood Pressure 182/121 183/117 186/118 O2 Sat by Pulse 99 99 99 Oximetry 01/31/18 01/31/18 01/31/18 22:30 22:40 22:51 Temperature Pulse Rate 82 77 79 Respiratory 16 16 15 Rate Blood Pressure 177/113 177/113 176/114 O2 Sat by Pulse 99 98 98 Oximetry 01/31/18 01/31/18 01/31/18 23:00 23:11 23:21 Temperature Pulse Rate 79 82 81 Respiratory 16 17 15 Rate Blood Pressure 180/110 177/113 177/117 O2 Sat by Pulse 98 97 97 Oximetry 01/31/18 01/31/18 01/31/18 23:30 23:41 23:48 Temperature Pulse Rate 80 83 78 Respiratory 16 13 15 Rate Blood Pressure 179/103 179/103 177/113 O2 Sat by Pulse 98 99 95 Oximetry 01/31/18 02/01/18 02/01/18 23:51 00:00 00:05 Temperature Pulse Rate 80 80 82 Respiratory 13 14 12 Rate Blood Pressure 177/109 159/106 159/106 O2 Sat by Pulse 96 98 99 Oximetry 02/01/18 02/01/18 02/01/18 00:10 00:19 00:20 Temperature 98.6 F Pulse Rate 77 Respiratory 14 17 Rate Blood Pressure 177/109 O2 Sat by Pulse 99 98 Oximetry 02/01/18 02/01/18 02/01/18 00:21 00:30 00:41 Temperature Pulse Rate 81 81 81 Respiratory 16 14 15 Rate Blood Pressure 157/106 153/101 157/106 O2 Sat by Pulse 99 99 99 Oximetry 02/01/18 02/01/18 02/01/18 00:51 01:00 01:11 Temperature Pulse Rate 82 81 81 Respiratory 15 15 15 Rate Blood Pressure 155/101 168/105 155/101 O2 Sat by Pulse 99 99 99 Oximetry 02/01/18 02/01/18 02/01/18 01:21 01:30 01:41 Temperature Pulse Rate 82 78 86 Respiratory 14 16 15 Rate Blood Pressure 169/99 170/99 169/99 O2 Sat by Pulse 98 98 99 Oximetry 02/01/18 02/01/18 02/01/18 01:51 02:00 02:15 Temperature Pulse Rate 83 80 84 Respiratory 16 15 15 Rate Blood Pressure 156/98 171/101 156/98 O2 Sat by Pulse 98 97 98 Oximetry 02/01/18 02/01/18 02/01/18 02:31 02:45 03:00 Temperature Pulse Rate 83 87 78 Respiratory 16 12 14 Rate Blood Pressure 160/103 176/100 178/100 O2 Sat by Pulse 98 97 97 Oximetry 02/01/18 02/01/18 02/01/18 03:16 03:30 03:45 Temperature Pulse Rate 78 81 82 Respiratory 16 14 15 Rate Blood Pressure 178/100 168/100 163/106 O2 Sat by Pulse 96 98 99 Oximetry 02/01/18 02/01/18 02/01/18 04:00 04:15 04:30 Temperature Pulse Rate 81 84 81 Respiratory 17 15 15 Rate Blood Pressure 160/105 170/109 163/104 O2 Sat by Pulse 98 99 97 Oximetry 02/01/18 02/01/18 02/01/18 04:45 05:00 05:15 Temperature Pulse Rate 83 81 83 Respiratory 14 14 16 Rate Blood Pressure 152/108 156/105 160/101 O2 Sat by Pulse 98 99 99 Oximetry 02/01/18 02/01/18 02/01/18 05:30 05:45 06:00 Temperature Pulse Rate 83 83 82 Respiratory 14 15 13 Rate Blood Pressure 156/110 158/108 171/97 O2 Sat by Pulse 99 97 94 Oximetry 02/01/18 02/01/18 02/01/18 06:15 06:30 08:00 Temperature 98.6 F Pulse Rate 82 83 Respiratory 15 15 Rate Blood Pressure 174/101 163/101 O2 Sat by Pulse 96 95 Oximetry 02/01/18 08:11 Temperature Pulse Rate Respiratory Rate Blood Pressure O2 Sat by Pulse 97 Oximetry Constitutional: no acute distress, asleep, other (morbidly obese) Eyes: injected ENT: oropharynx moist, other (Mallampati 4) Neck: supple, no JVD, other (large neck) Ascultation: Bilateral: clear, diminished breath sounds Cardiovascular: regular rate and rhythm Gastrointestinal: normoactive bowel sounds, non-distended Integumentary: normal Extremities: no cyanosis, no edema Neurologic: pupils equal and round, CN II-XII normal, other (asked sleep but easily arousable and able to answer my questions. 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 flares toes correctly) CBC and BMP: 02/01/18 04:00 02/01/18 04:00 ABG, PT/INR, D-dimer: PT/INR, D-dimer PT 13.8 Sec. (12.2-14.9) 01/30/18 20:09 INR 1.01 (0.87-1.13) 01/30/18 20:09 Abnormal lab findings: Abnormal Labs 01/30/18 01/30/18 01/30/18 20:09 20:09 20:09 RBC 6.08 H Hgb 17.0 H Hct 50.4 H MCV 83 L MCH RDW 16.0 H Lymph % (Auto) [place] % (Auto) 10.[address] [place] # Seg Neutrophils % Seg Neutrophils # APTT 20.9 L Glucose 138 H POC Glucose Calcium 10.3 H Total Protein 01/30/18 01/30/18 01/31/18 20:09 20:33 07:00 RBC Hgb Hct MCV MCH RDW Lymph % (Auto) [place] % (Auto) [place] # Seg Neutrophils % Seg Neutrophils # APTT Glucose 139 H POC Glucose 139 H 143 H Calcium 10.5 H Total Protein 5.9 L 01/31/18 01/31/18 01/31/18 08:05 12:28 17:09 RBC Hgb Hct MCV MCH RDW Lymph % (Auto) [place] % (Auto) [place] # Seg Neutrophils % Seg Neutrophils # APTT Glucose POC Glucose 174 H 144 H 156 H Calcium Total Protein 01/31/18 02/01/18 02/01/18 18:09 04:00 04:00 RBC 6.70 H 6.48 H Hgb 18.3 H 18.1 H Hct 56.2 H 54.5 H MCV MCH 27 L RDW 16.2 H 15.9 H Lymph % (Auto) 12.[address] [place] % (Auto) 7.[address] [place] # 1.0 H Seg Neutrophils % 79.1 H 76.7 H Seg Neutrophils # 7.9 H 8.1 H APTT Glucose 177 H POC Glucose Calcium Total Protein 02/01/18 08:03 RBC Hgb Hct MCV MCH RDW Lymph % (Auto) [place] % (Auto) [place] # Seg Neutrophils % Seg Neutrophils # APTT Glucose POC Glucose 158 H Calcium Total Protein
[2018-02-01] MEDS: COREG PO SCH ×2 (10:13→21:35)
[2018-02-01] MEDS: IMDUR PO SCH (10:14)
[2018-02-01] MEDS: LASIX PO SCH (10:14)
[2018-02-01] MEDS: ASPIRIN PO SCH (10:15)
--- NOTE | 2018-02-01 12:23 | Progress Note ---
Assessment and Plan Assessment and plan: Patient is a 42-year-old -Mal[place]ian male that presents emergency room possible stroke like symptoms and left-sided weakness and left-sided facial droop. Her nose, "EMS and the patient state that the last known well time was 1914. Patient denies chest pain shortness of breath. Patient states he is having difficulties walking. Patient states difficulties moving his left side. Patient states he can move his right side normally but the left side is not moving as well. Patient denies headache. Patient denies dizziness and chills. There has been some concern about his medical compliance. In the ED the patient received TPA at the ER after developing neurology consultation and was started before this on a Cardene drip for hypertensive emergency management. Initial head and neck CT showed no evidence of stroke. He was subsequently admitted in the ICU. His blood pressure has been very unstable-"high", per . He is also diabetic. Sleep reported as poor with some persistent sleepiness or tiredness. Acute stroke. Status post TPA. Hypertensive emergency. Improved. now off cardene drip, restart home meds, Keep pressures relative considering extent of CVA. Further reduction in 24 hrs LESLEY Diabetes mellitus Morbid obesity Plan Supportive care Restart home meds Diabetes Control Monitor additional 24 hrs in ICU for better control Neurology and Pulmonary input noted dvt/gi PROPHY Plan of care discussed with family and patient The high probability of a clinically significant, sudden or life threatening deterioration of the [Neurology] system(s) required my full and direct attention , intervention and personal management. The aggregate critical care time was [35 ] minutes. This time is in addition to time spent performing reported procedures but includes the following: [X] Data Review and interpretation [X] Patient assessment and monitoring of vital signs [X] Documentation [X] Medication orders and management History Interval history: Patient seen and examined in no acute distress. BP still fluctuating. Hospitalist Physical - Constitutional Vitals: Temp Pulse Resp BP Pulse Ox 98.6 F 78 12 145/96 91 02/01/18 08:00 02/01/18 11:30 02/01/18 11:30 02/01/18 11:30 02/01/18 11:30 General appearance: Present: no acute distress, well-nourished - EENT Eyes: Present: PERRL, EOM intact ENT: hearing intact, clear oral mucosa - Neck Neck: Present: supple, normal ROM - Respiratory Respiratory effort: normal Respiratory: bilateral: CTA - Cardiovascular Rhythm: regular Heart Sounds: Present: S1 & S2 - Extremities Extremities: no ischemia Peripheral Pulses: within normal limits - Abdominal General gastrointestinal: soft, non-tender - Integumentary Integumentary: Present: clear, warm, dry - Psychiatric Psychiatric: appropriate mood/affect, intact judgment & insight - Neurologic Neurologic: CNII-XII intact, moves all extremities Results - Labs CBC & Chem 7: 02/01/18 04:00 02/01/18 04:00 Labs: Laboratory Last Values WBC 10.5 K/mm3 (4.5-11.0) 02/01/18 04:00 RBC 6.48 M/mm3 (3.65-5.03) H 02/01/18 04:00 Hgb 18.1 gm/dl (11.8-15.2) H 02/01/18 04:00 Hct 54.5 % (35.5-45.6) H 02/01/18 04:00 MCV 84 fl (84-94) 02/01/18 04:00 MCH 28 pg (28-32) 02/01/18 04:00 MCHC 33 % (32-34) 02/01/18 04:00 RDW 15.9 % (13.2-15.2) H 02/01/18 04:00 Plt Count 263 K/mm3 (140-440) 02/01/18 04:00 Lymph % (Auto) 13.0 % (13.4-35.0) L 02/01/18 04:00 [place] % (Auto) 9.4 % (0.0-7.3) H 02/01/18 04:00 Eos % (Auto) 0.4 % (0.0-4.3) 02/01/18 04:00 Baso % (Auto) 0.5 % (0.0-1.8) 02/01/18 04:00 Lymph # 1.4 K/mm3 (1.2-5.4) 02/01/18 04:00 [place] # 1.0 K/mm3 (0.0-0.8) H 02/01/18 04:00 Eos # 0.0 K/mm3 (0.0-0.4) 02/01/18 04:00 Baso # 0.0 K/mm3 (0.0-0.1) 02/01/18 04:00 Seg Neutrophils % 76.7 % (40.0-70.0) H 02/01/18 04:00 Seg Neutrophils # 8.1 K/mm3 (1.8-7.7) H 02/01/18 04:00 PT 13.8 Sec. (12.2-14.9) 01/30/18 20:09 INR 1.01 (0.87-1.13) 01/30/18 20:09 APTT 20.9 Sec. (24.2-36.6) L 01/30/18 20:09 Thrombin Time 17.4 Sec. (15.1-19.6) 01/30/18 20:09 Sodium 143 mmol/L (137-145) 02/01/18 04:00 Potassium 3.9 mmol/L (3.6-5.0) 02/01/18 04:00 Chloride 102.7 mmol/L (98-107) 02/01/18 04:00 Carbon Dioxide 26 mmol/L (22-30) 02/01/18 04:00 Anion Gap 18 mmol/L 02/01/18 04:00 BUN 12 mg/dL (9-20) 02/01/18 04:00 Creatinine 1.1 mg/dL (0.8-1.5) 02/01/18 04:00 Estimated GFR > 60 ml/min 02/01/18 04:00 BUN/Creatinine Ratio 11 % 02/01/18 04:00 Glucose 177 mg/dL (75-100) H 02/01/18 04:00 POC Glucose 158 (70-105) H 02/01/18 08:03 Calcium 10.1 mg/dL (8.4-10.2) 02/01/18 04:00 Total Bilirubin 1.10 mg/dL (0.1-1.2) 01/30/18 20:33 AST 15 units/L (5-40) 01/30/18 20:33 ALT 18 units/L (7-56) 01/30/18 20:33 Alkaline Phosphatase 42 units/L (35-129) 01/30/18 20:33 Troponin T < 0.010 ng/mL (0.00-0.029) 01/30/18 20:09 Total Protein 5.9 g/dL (6.3-8.2) L 01/30/18 20:33 Albumin 3.9 g/dL (3.9-5) 01/30/18 20:33 Albumin/Globulin Ratio 2.0 % 01/30/18 20:33 - Imaging and Cardiology Chest x-ray: image reviewed CT Scan - head: image reviewed (no cva) MRI - head: image reviewed (cva)
[2018-02-01] MEDS: APRESOLINE PO SCH ×2 (15:00→20:37)
[2018-02-01] MEDS ORDERED: TYLENOL PO PRN (15:00)
[2018-02-01] MEDS ORDERED: D50W (25GM) Syringe IV PRN (16:00)
--- NOTE | 2018-02-01 16:38 | Magnetic Resonance Report ---
FINAL REPORT EXAM: MR BRAIN WO CON HISTORY: LEFT SIDED WEAKNESS TECHNIQUE: Multiplanar multisequence brain MR imaging without IV contrast. PRIORS: Head CTA and head CT 01/30/2018 FINDINGS: There is a large region of nonspecific restricted diffusion in the right frontoparietal watershed region. This most compatible with acute to subacute ischemic infarct. Corresponding T1 hypointensity and T2 hyperintensity suggest the lesion is at least 16 hours old. There is associated minimal localized mass effect with effacement of the adjacent sulci. Brain edema is also associated with slight midline shift with 3.7 mm leftward shift of the septum pellucidum. Retention cyst or moderate fluid level in right maxillary sinus. The other paranasal sinuses are clear as are the mastoid air cells and middle ear cavities. Normal flow void noted in the visible bill [place]ore[place] Vasquez. The brain is without mass or hemorrhage. The ventricles are age-appropriate. IMPRESSION: Large region of restricted diffusion suggestive of acute or subacute ischemic infarct centered in the right frontoparietal watershed region. Additional signal abnormality suggests lesion at least 16 hours old. Associated mass effect with slight leftward midline shift Retention cyst or moderate fluid level in right maxillary sinus
[2018-02-01] MEDS: HumaLOG SUB-Q SCH (16:51)
[2018-02-01] MEDS ORDERED: APRESOLINE PO SCH (21:09)
[2018-02-01] MEDS ORDERED: NON-FORMULARY (Sacubitril/Valsartan [Entresto 97 Mg-103 Mg Tablet] 1 EACH) PO SCH (22:00)
[2018-02-02] MEDS: LOVENOX SUB-Q SCH ×2 (00:08→22:20)
[2018-02-02] MEDS: HumaLOG SUB-Q SCH ×5 (00:09→23:05)
[2018-02-02 04:57] LABS: Basophils % (Auto) 0.5 % (0.0-1.8); Eosinophils % (Auto) 0.3 % (0.0-4.3); Hematocrit 51.4 % (35.5-45.6); Lymphocytes # (Auto) 1.6 K/mm3 (1.2-5.4); Lymphocytes % (Auto) 14.7 % (13.4-35.0); Mean Corpuscular HGB Conc 33 % (32-34); Mean Corpuscular Hemoglobin 28 pg (28-32); Mean Corpuscular Volume 85 fl (84-94); Monocytes # (Auto) 1.3 K/mm3 (0.0-0.8); Monocytes % (Auto) 12.1 % (0.0-7.3); Platelet Count 229 K/mm3 (140-440); Red Blood Count 6.08 M/mm3 (3.65-5.03); Red Cell Distribution Width 15.9 % (13.2-15.2)
[2018-02-02] MEDS: LANTUS SUB-Q SCH (07:56)
[2018-02-02] MEDS ORDERED: APRESOLINE PO SCH ×2 (08:00)
--- NOTE | 2018-02-02 08:50 | Hem/Onc Progress Note ---
Assessment and Plan Hemoglobin improving. Overall improving neurologically. d/w with patient and family Subjective Date of service: 02/02/18 Interval history: Patient looks better. Still sleepy. Objective - Constitutional Vitals: Last Vital Signs Temp 99.0 F 02/02/18 04:00 Pulse 66 02/02/18 07:00 Resp 15 02/02/18 07:00 BP 172/107 02/02/18 07:00 Pulse Ox 99 02/02/18 07:00 Performance status: 3-limited selfcare - Neck Neck: supple - Respiratory Respiratory effort: Positive: normal Respiratory: bilateral: diminished - Cardiovascular Rhythm: regular Extremities: No edema - Gastrointestinal General gastrointestinal: Present: soft - Labs Lab Results: Laboratory Results - last 24 hr 02/01/18 02/01/18 02/01/18 13:18 15:24 21:30 WBC RBC Hgb Hct MCV MCH MCHC RDW Plt Count Lymph % (Auto) Taylor % (Auto) Eos % (Auto) Baso % (Auto) Lymph # Taylor # Eos # Baso # Seg Neutrophils % Seg Neutrophils # POC Glucose 232 H 206 H 142 H Triglycerides Cholesterol LDL Cholesterol Direct HDL Cholesterol Cholesterol/HDL Ratio 02/02/18 02/02/18 02/02/18 04:11 04:11 07:50 WBC 10.6 RBC 6.08 H Hgb 17.0 H Hct 51.4 H MCV 85 MCH 28 MCHC 33 RDW 15.9 H Plt Count 229 Lymph % (Auto) 14.7 Taylor % (Auto) 12.1 H Eos % (Auto) 0.3 Baso % (Auto) 0.5 Lymph # 1.6 Taylor # 1.3 H Eos # 0.0 Baso # 0.0 Seg Neutrophils % 72.4 H Seg Neutrophils # 7.6 POC Glucose 126 H Triglycerides 127 Cholesterol 198 LDL Cholesterol Direct 150 H HDL Cholesterol 33 L Cholesterol/HDL Ratio 6.00
--- NOTE | 2018-02-02 09:06 | Progress Note ---
Assessment and Plan Acute stroke. Status post TPA. Etiology pretibial hypertensive origin/ diabetes. The patient had strong history of sleep apnea Hypertensive emergency. Improved. Currently on Cardene drip LESLEY. May be primary underlying factor and/or trigger of the other events. Erythrocytosis. Concern for chronic hypoxemic process, possibly related to sleep apnea. I believe,concern for obesity hypoventilation syndrome is low, if his bicarbonate level < 28 with LESLEY Diabetes mellitus Morbid obesity Recommendations Maintain adequate BP control. Blood sugar control between 120 and 180 mg per DL Continue oxygen support CPAP at night perlab CPAP titration level. If this is not available, I will instruct respiratory to use CPAP or BiPAP at night to minimize sleep apnea.No issues last night Continue close neurological monitoring MRI of the brain DVT prophylaxis Aspiration precautions Neurology follow-up Speech, swallowing evaluation Discussed with patient and in detail. Critical care time was 31 minutes of [id number] evaluation and coordination of care Subjective Date of service: 02/02/18 Principal diagnosis: Stroke, erythrocytosis,LESLEY,DM Objective Vital Signs - 12hr 02/01/18 02/01/18 02/01/18 21:15 21:30 21:35 Temperature Pulse Rate 75 77 85 Pulse Rate [ From Monitor] Respiratory 18 22 Rate Blood Pressure 186/111 178/112 178/110 O2 Sat by Pulse 99 99 Oximetry 02/01/18 02/01/18 02/01/18 21:46 22:00 22:16 Temperature Pulse Rate 76 74 78 Pulse Rate [ From Monitor] Respiratory 18 19 16 Rate Blood Pressure 169/109 160/101 148/93 O2 Sat by Pulse 99 98 100 Oximetry 02/01/18 02/01/18 02/01/18 22:30 22:45 23:00 Temperature Pulse Rate 74 70 70 Pulse Rate [ From Monitor] Respiratory 16 18 17 Rate Blood Pressure 139/93 156/107 156/107 O2 Sat by Pulse 98 99 96 Oximetry 02/01/18 02/01/18 02/01/18 23:16 23:24 23:30 Temperature Pulse Rate 71 71 69 Pulse Rate [ From Monitor] Respiratory 16 18 16 Rate Blood Pressure 152/100 152/100 144/99 O2 Sat by Pulse 99 100 99 Oximetry 02/01/18 02/02/18 02/02/18 23:45 00:00 00:15 Temperature 99.5 F Pulse Rate 68 67 65 Pulse Rate [ 67 From Monitor] Respiratory 15 15 16 Rate Blood Pressure 146/95 150/96 155/101 O2 Sat by Pulse 99 99 99 Oximetry 02/02/18 02/02/18 02/02/18 00:30 00:46 01:00 Temperature Pulse Rate 67 68 69 Pulse Rate [ From Monitor] Respiratory 16 16 15 Rate Blood Pressure 163/95 170/96 170/96 O2 Sat by Pulse 99 97 97 Oximetry 02/02/18 02/02/18 02/02/18 01:15 01:30 01:46 Temperature Pulse Rate 67 71 71 Pulse Rate [ From Monitor] Respiratory 16 15 14 Rate Blood Pressure 160/99 155/95 156/92 O2 Sat by Pulse 97 99 100 Oximetry 02/02/18 02/02/18 02/02/18 02:00 02:16 02:30 Temperature Pulse Rate 76 68 71 Pulse Rate [ From Monitor] Respiratory 22 14 14 Rate Blood Pressure 163/92 158/96 161/98 O2 Sat by Pulse 99 100 100 Oximetry 02/02/18 02/02/18 02/02/18 02:45 03:00 03:16 Temperature Pulse Rate 74 72 67 Pulse Rate [ From Monitor] Respiratory 14 16 20 Rate Blood Pressure 174/112 145/99 165/111 O2 Sat by Pulse 99 99 100 Oximetry 02/02/18 02/02/18 02/02/18 03:30 03:46 04:00 Temperature 99.0 F Pulse Rate 66 70 68 Pulse Rate [ 68 From Monitor] Respiratory 17 18 13 Rate Blood Pressure 175/109 161/105 161/105 O2 Sat by Pulse 100 99 100 Oximetry 02/02/18 02/02/18 02/02/18 04:16 04:30 04:46 Temperature Pulse Rate 67 71 68 Pulse Rate [ From Monitor] Respiratory 17 22 18 Rate Blood Pressure 164/98 159/102 164/117 O2 Sat by Pulse 99 98 99 Oximetry 02/02/18 02/02/18 02/02/18 05:00 05:16 05:30 Temperature Pulse Rate 67 68 67 Pulse Rate [ From Monitor] Respiratory 17 17 16 Rate Blood Pressure 172/109 166/112 172/121 O2 Sat by Pulse 93 100 100 Oximetry 02/02/18 02/02/18 02/02/18 05:46 06:00 06:16 Temperature Pulse Rate 66 71 67 Pulse Rate [ 71 From Monitor] Respiratory 21 21 18 Rate Blood Pressure 178/113 178/113 169/121 O2 Sat by Pulse 98 99 99 Oximetry 02/02/18 02/02/18 02/02/18 06:30 06:46 07:00 Temperature Pulse Rate 62 64 66 Pulse Rate [ From Monitor] Respiratory 16 13 15 Rate Blood Pressure 169/121 172/107 172/107 O2 Sat by Pulse 99 99 99 Oximetry Constitutional: no acute distress, asleep, other (morbidly obese) Eyes: injected ENT: oropharynx moist, other (Mallampati 4) Neck: supple, no JVD, other (large neck) Ascultation: Bilateral: clear, diminished breath sounds Cardiovascular: regular rate and rhythm Gastrointestinal: normoactive bowel sounds, non-distended Integumentary: normal Extremities: no cyanosis, no edema Neurologic: pupils equal and round, CN II-XII normal, other (asked sleep but easily arousable and able to answer my questions. 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 flares toes correctly) CBC and BMP: 02/02/18 04:11 02/01/18 04:00 ABG, PT/INR, D-dimer: PT/INR, D-dimer PT 13.8 Sec. (12.2-14.9) 01/30/18 20:09 INR 1.01 (0.87-1.13) 01/30/18 20:09 Abnormal lab findings: Abnormal Labs 01/30/18 01/30/18 01/30/18 20:09 20:09 20:09 RBC 6.08 H Hgb 17.0 H Hct 50.4 H MCV 83 L MCH RDW 16.0 H Lymph % (Auto) [place] % (Auto) 10.8 H [place] # Seg Neutrophils % Seg Neutrophils # APTT 20.9 L Glucose 138 H POC Glucose Calcium 10.3 H Total Protein LDL Cholesterol Direct HDL Cholesterol 01/30/18 01/30/18 01/31/18 20:09 20:33 07:00 RBC Hgb Hct MCV MCH RDW Lymph % (Auto) [place] % (Auto) [place] # Seg Neutrophils % Seg Neutrophils # APTT Glucose 139 H POC Glucose 139 H 143 H Calcium 10.5 H Total Protein 5.9 L LDL Cholesterol Direct HDL Cholesterol 01/31/18 01/31/18 01/31/18 08:05 12:28 17:09 RBC Hgb Hct MCV MCH RDW Lymph % (Auto) [place] % (Auto) [place] # Seg Neutrophils % Seg Neutrophils # APTT Glucose POC Glucose 174 H 144 H 156 H Calcium Total Protein LDL Cholesterol Direct HDL Cholesterol 01/31/18 02/01/18 02/01/18 18:09 04:00 04:00 RBC 6.70 H 6.48 H Hgb 18.3 H 18.1 H Hct 56.2 H 54.5 H MCV MCH 27 L RDW 16.2 H 15.9 H Lymph % (Auto) 12.4 L 13.0 L [place] % (Auto) 7.5 H 9.4 H [place] # 1.0 H Seg Neutrophils % 79.1 H 76.7 H Seg Neutrophils # 7.9 H 8.1 H APTT Glucose 177 H POC Glucose Calcium Total Protein LDL Cholesterol Direct HDL Cholesterol 02/01/18 02/01/18 02/01/18 08:03 13:18 15:24 RBC Hgb Hct MCV MCH RDW Lymph % (Auto) [place] % (Auto) [place] # Seg Neutrophils % Seg Neutrophils # APTT Glucose POC Glucose 158 H 232 H 206 H Calcium Total Protein LDL Cholesterol Direct HDL Cholesterol 02/01/18 02/02/18 02/02/18 21:30 04:11 04:11 RBC 6.08 H Hgb 17.0 H Hct 51.4 H MCV MCH RDW 15.9 H Lymph % (Auto) [place] % (Auto) 12.1 H [place] # 1.3 H Seg Neutrophils % 72.4 H Seg Neutrophils # APTT Glucose POC Glucose 142 H Calcium Total Protein LDL Cholesterol Direct 150 H HDL Cholesterol 33 L 02/02/18 07:50 RBC Hgb Hct MCV MCH RDW Lymph % (Auto) [place] % (Auto) [place] # Seg Neutrophils % Seg Neutrophils # APTT Glucose POC Glucose 126 H Calcium Total Protein LDL Cholesterol Direct HDL Cholesterol
[2018-02-02] MEDS: IMDUR PO SCH (10:33)
[2018-02-02] MEDS: ASPIRIN PO SCH (10:33)
[2018-02-02] MEDS: COREG PO SCH ×2 (10:33→22:16)
[2018-02-02] MEDS: LASIX PO SCH (10:38)
--- NOTE | 2018-02-02 13:23 | Progress Note ---
Subjective Date of service: 02/02/18 Principal diagnosis: Stroke, erythrocytosis,LESLEY,DM Interval history: NEUROLOGY CONSULT FOLLOW UP NOTE MRI head - acute R frontal infarct CTA brain and neck - nl Echo done but we await report. DXIMP: 1. Acute Right frontal cerebral infarct (R MCA distribution), s/p tPA Rx 2. IDDM2 RECC: 1. Await Echo result. If Afib, then anticoag. If clot seen, then Anticoag. If neither, pursue anti-plt Rx. 2. Pursue PT then rehab 3. Neuro w/u complete. Call as needed. Briana Goldberg MD Objective - Vital Sign Vital Signs - 12hr 02/02/18 02/02/18 02/02/18 01:15 01:30 01:46 Temperature Pulse Rate 67 71 71 Pulse Rate [ From Monitor] Respiratory 16 15 14 Rate Blood Pressure 160/99 155/95 156/92 O2 Sat by Pulse 97 99 100 Oximetry 02/02/18 02/02/18 02/02/18 02:00 02:16 02:30 Temperature Pulse Rate 76 68 71 Pulse Rate [ From Monitor] Respiratory 22 14 14 Rate Blood Pressure 163/92 158/96 161/98 O2 Sat by Pulse 99 100 100 Oximetry 02/02/18 02/02/18 02/02/18 02:45 03:00 03:16 Temperature Pulse Rate 74 72 67 Pulse Rate [ From Monitor] Respiratory 14 16 20 Rate Blood Pressure 174/112 145/99 165/111 O2 Sat by Pulse 99 99 100 Oximetry 02/02/18 02/02/18 02/02/18 03:30 03:46 04:00 Temperature 99.0 F Pulse Rate 66 70 68 Pulse Rate [ 68 From Monitor] Respiratory 17 18 13 Rate Blood Pressure 175/109 161/105 161/105 O2 Sat by Pulse 100 99 100 Oximetry 02/02/18 02/02/18 02/02/18 04:16 04:30 04:46 Temperature Pulse Rate 67 71 68 Pulse Rate [ From Monitor] Respiratory 17 22 18 Rate Blood Pressure 164/98 159/102 164/117 O2 Sat by Pulse 99 98 99 Oximetry 02/02/18 02/02/18 02/02/18 05:00 05:16 05:30 Temperature Pulse Rate 67 68 67 Pulse Rate [ From Monitor] Respiratory 17 17 16 Rate Blood Pressure 172/109 166/112 172/121 O2 Sat by Pulse 93 100 100 Oximetry 02/02/18 02/02/18 02/02/18 05:46 06:00 06:16 Temperature Pulse Rate 66 71 67 Pulse Rate [ 71 From Monitor] Respiratory 21 21 18 Rate Blood Pressure 178/113 178/113 169/121 O2 Sat by Pulse 98 99 99 Oximetry 02/02/18 02/02/18 02/02/18 06:30 06:46 07:00 Temperature Pulse Rate 62 64 66 Pulse Rate [ From Monitor] Respiratory 16 13 15 Rate Blood Pressure 169/121 172/107 172/107 O2 Sat by Pulse 99 99 99 Oximetry 02/02/18 02/02/18 10:33 11:24 Temperature Pulse Rate 69 Pulse Rate [ From Monitor] Respiratory Rate Blood Pressure 151/93 O2 Sat by Pulse 98 Oximetry - Laboratory Findings CBC and BMP: 02/02/18 04:11 02/01/18 04:00 Abnormal Lab Findings: Abnormal Labs 01/30/18 01/30/18 01/30/18 20:09 20:09 20:09 RBC 6.08 H Hgb 17.0 H Hct 50.4 H MCV 83 L MCH RDW 16.0 H Lymph % (Auto) [place] % (Auto) 10.8 H [place] # Seg Neutrophils % Seg Neutrophils # APTT 20.9 L Glucose 138 H POC Glucose Calcium 10.3 H Total Protein LDL Cholesterol Direct HDL Cholesterol 01/30/18 01/30/18 01/31/18 20:09 20:33 07:00 RBC Hgb Hct MCV MCH RDW Lymph % (Auto) [place] % (Auto) [place] # Seg Neutrophils % Seg Neutrophils # APTT Glucose 139 H POC Glucose 139 H 143 H Calcium 10.5 H Total Protein 5.9 L LDL Cholesterol Direct HDL Cholesterol 01/31/18 01/31/18 01/31/18 08:05 12:28 17:09 RBC Hgb Hct MCV MCH RDW Lymph % (Auto) [place] % (Auto) [place] # Seg Neutrophils % Seg Neutrophils # APTT Glucose POC Glucose 174 H 144 H 156 H Calcium Total Protein LDL Cholesterol Direct HDL Cholesterol 01/31/18 02/01/18 02/01/18 18:09 04:00 04:00 RBC 6.70 H 6.48 H Hgb 18.3 H 18.1 H Hct 56.2 H 54.5 H MCV MCH 27 L RDW 16.2 H 15.9 H Lymph % (Auto) 12.4 L 13.0 L [place] % (Auto) 7.5 H 9.4 H [place] # 1.0 H Seg Neutrophils % 79.1 H 76.7 H Seg Neutrophils # 7.9 H 8.1 H APTT Glucose 177 H POC Glucose Calcium Total Protein LDL Cholesterol Direct HDL Cholesterol 02/01/18 02/01/18 02/01/18 08:03 13:18 15:24 RBC Hgb Hct MCV MCH RDW Lymph % (Auto) [place] % (Auto) [place] # Seg Neutrophils % Seg Neutrophils # APTT Glucose POC Glucose 158 H 232 H 206 H Calcium Total Protein LDL Cholesterol Direct HDL Cholesterol 02/01/18 02/02/18 02/02/18 21:30 04:11 04:11 RBC 6.08 H Hgb 17.0 H Hct 51.4 H MCV MCH RDW 15.9 H Lymph % (Auto) [place] % (Auto) 12.1 H [place] # 1.3 H Seg Neutrophils % 72.4 H Seg Neutrophils # APTT Glucose POC Glucose 142 H Calcium Total Protein LDL Cholesterol Direct 150 H HDL Cholesterol 33 L 02/02/18 02/02/18 07:50 11:45 RBC Hgb Hct MCV MCH RDW Lymph % (Auto) [place] % (Auto) [place] # Seg Neutrophils % Seg Neutrophils # APTT Glucose POC Glucose 126 H 145 H Calcium Total Protein LDL Cholesterol Direct HDL Cholesterol
--- NOTE | 2018-02-02 14:14 | Progress Note ---
Assessment and Plan Assessment and plan: Patient is a 42-year-old -[place] male that presents emergency room possible stroke like symptoms and left-sided weakness and left-sided facial droop. Her nose, "EMS and the patient state that the last known well time was 1914. Patient denies chest pain shortness of breath. Patient states he is having difficulties walking. Patient states difficulties moving his left side. Patient states he can move his right side normally but the left side is not moving as well. Patient denies headache. Patient denies dizziness and chills. There has been some concern about his medical compliance. In the ED the patient received TPA at the ER after developing neurology consultation and was started before this on a Cardene drip for hypertensive emergency management. Initial head and neck CT showed no evidence of stroke. He was subsequently admitted in the ICU. His blood pressure has been very unstable-"high", per . He is also diabetic. Sleep reported as poor with some persistent sleepiness or tiredness. Acute stroke. Status post TPA. Hypertensive emergency. Improved. now off cardene drip, restarted home meds, Keep pressures relative considering extent of CVA. Further reduction in 24 hrs LESLEY Diabetes mellitus Morbid obesity Plan Supportive care Adjust blood pressure medications Diabetes Control Awaiting CPAP settings. Transfer to telemetry Neurology and Pulmonary input noted dvt/gi PROPHY Plan of care discussed with family and patient The high probability of a clinically significant, sudden or life threatening deterioration of the [Neurology] system(s) required my full and direct attention , intervention and personal management. The aggregate critical care time was [35 ] minutes. This time is in addition to time spent performing reported procedures but includes the following: [X] Data Review and interpretation [X] Patient assessment and monitoring of vital signs [X] Documentation [X] Medication orders and management History Interval history: Patient seen and examined in although lethargic this morning appears improved compared to yesterday. Hospitalist Physical - Physical exam Narrative exam: VITAL SIGNS: Reviewed. GENERAL: The patient appeared well nourished and normally developed. Vital signs as documented. HEAD: No signs of head trauma. EYES: Pupils are equal. Extraocular motions intact. EARS: Hearing grossly intact. MOUTH: Oropharynx is normal. NECK: No adenopathy, no JVD. CHEST: Chest with clear breath sounds bilaterally. No wheezes, rales, or rhonchi. CARDIAC: Regular rate and rhythm. S1 and S2, without murmurs, gallops, or rubs. VASCULAR: No Edema. Peripheral pulses normal and equal in all extremities. ABDOMEN: Soft, without detectable tenderness. No sign of distention. No rebound or guarding, and no masses palpated. Bowel Sounds normal. MUSCULOSKELETAL: Good range of motion of all major joints. Extremities without clubbing, cyanosis or edema. NEUROLOGIC EXAM: Awake but lethargic otherwise oriented x 3. No focal sensory or strength deficits except for left upper extremity with motor strength of over 5. Speech normal. Follows commands. PSYCHIATRIC: Mood normal. SKIN: No rash or lesions. - Constitutional Vitals: Temp Pulse Resp BP Pulse Ox 99.0 F 69 15 151/93 98 02/02/18 04:00 02/02/18 10:33 02/02/18 07:00 02/02/18 10:33 02/02/18 11:24 General appearance: Present: no acute distress, well-nourished Results - Labs CBC & Chem 7: 02/02/18 04:11 02/01/18 04:00 Labs: Laboratory Last Values WBC 10.6 K/mm3 (4.5-11.0) 02/02/18 04:11 RBC 6.08 M/mm3 (3.65-5.03) H 02/02/18 04:11 Hgb 17.0 gm/dl (11.8-15.2) H 02/02/18 04:11 Hct 51.4 % (35.5-45.6) H 02/02/18 04:11 MCV 85 fl (84-94) 02/02/18 04:11 MCH 28 pg (28-32) 02/02/18 04:11 MCHC 33 % (32-34) 02/02/18 04:11 RDW 15.9 % (13.2-15.2) H 02/02/18 04:11 Plt Count 229 K/mm3 (140-440) 02/02/18 04:11 Lymph % (Auto) 14.7 % (13.4-35.0) 02/02/18 04:11 [place] % (Auto) 12.1 % (0.0-7.3) H 02/02/18 04:11 Eos % (Auto) 0.3 % (0.0-4.3) 02/02/18 04:11 Baso % (Auto) 0.5 % (0.0-1.8) 02/02/18 04:11 Lymph # 1.6 K/mm3 (1.2-5.4) 02/02/18 04:11 [place] # 1.3 K/mm3 (0.0-0.8) H 02/02/18 04:11 Eos # 0.0 K/mm3 (0.0-0.4) 02/02/18 04:11 Baso # 0.0 K/mm3 (0.0-0.1) 02/02/18 04:11 Seg Neutrophils % 72.4 % (40.0-70.0) H 02/02/18 04:11 Seg Neutrophils # 7.6 K/mm3 (1.8-7.7) 02/02/18 04:11 PT 13.8 Sec. (12.2-14.9) 01/30/18 20:09 INR 1.01 (0.87-1.13) 01/30/18 20:09 APTT 20.9 Sec. (24.2-36.6) L 01/30/18 20:09 Thrombin Time 17.4 Sec. (15.1-19.6) 01/30/18 20:09 Sodium 143 mmol/L (137-145) 02/01/18 04:00 Potassium 3.9 mmol/L (3.6-5.0) 02/01/18 04:00 Chloride 102.7 mmol/L (98-107) 02/01/18 04:00 Carbon Dioxide 26 mmol/L (22-30) 02/01/18 04:00 Anion Gap 18 mmol/L 02/01/18 04:00 BUN 12 mg/dL (9-20) 02/01/18 04:00 Creatinine 1.1 mg/dL (0.8-1.5) 02/01/18 04:00 Estimated GFR > 60 ml/min 02/01/18 04:00 BUN/Creatinine Ratio 11 % 02/01/18 04:00 Glucose 177 mg/dL (75-100) H 02/01/18 04:00 POC Glucose 145 (70-105) H 02/02/18 11:45 Calcium 10.1 mg/dL (8.4-10.2) 02/01/18 04:00 Total Bilirubin 1.10 mg/dL (0.1-1.2) 01/30/18 20:33 AST 15 units/L (5-40) 01/30/18 20:33 ALT 18 units/L (7-56) 01/30/18 20:33 Alkaline Phosphatase 42 units/L (35-129) 01/30/18 20:33 Troponin T < 0.010 ng/mL (0.00-0.029) 01/30/18 20:09 Total Protein 5.9 g/dL (6.3-8.2) L 01/30/18 20:33 Albumin 3.9 g/dL (3.9-5) 01/30/18 20:33 Albumin/Globulin Ratio 2.0 % 01/30/18 20:33 Triglycerides 127 mg/dL (2-149) 02/02/18 04:11 Cholesterol 198 mg/dL (50-199) 02/02/18 04:11 LDL Cholesterol Direct 150 mg/dL (50-130) H 02/02/18 04:11 HDL Cholesterol 33 mg/dL (40-59) L 02/02/18 04:11 Cholesterol/HDL Ratio 6.00 % 02/02/18 04:11 - Imaging and Cardiology MRI - head: pending (left frontal CVA)
[2018-02-02] MEDS: APRESOLINE PO SCH ×2 (14:59→22:16)
[2018-02-03 06:56] LABS: Basophils # (Auto) 0.1 K/mm3 (0.0-0.1); Basophils % (Auto) 0.6 % (0.0-1.8); Eosinophils % (Auto) 0.5 % (0.0-4.3); Hematocrit 51.4 % (35.5-45.6); Hemoglobin 16.9 gm/dl (11.8-15.2); Lymphocytes # (Auto) 1.3 K/mm3 (1.2-5.4); Mean Corpuscular HGB Conc 33 % (32-34); Mean Corpuscular Hemoglobin 28 pg (28-32); Mean Corpuscular Volume 84 fl (84-94); Monocytes % (Auto) 11.9 % (0.0-7.3); Platelet Count 227 K/mm3 (140-440)
[2018-02-03 07:20] LABS: BUN/Creatinine Ratio 14; Blood Urea Nitrogen 15 mg/dL (9-20); Hemolysis Index 8
[2018-02-03] MEDS: HumaLOG SUB-Q SCH ×4 (09:16→22:02)
[2018-02-03] MEDS: ASPIRIN PO SCH (09:17)
[2018-02-03] MEDS: APRESOLINE PO SCH ×3 (09:17→22:00)
[2018-02-03] MEDS: COREG PO SCH ×2 (09:18→22:01)
[2018-02-03] MEDS: LASIX PO SCH (09:18)
[2018-02-03] MEDS: IMDUR PO SCH (09:18)
[2018-02-03] MEDS: LANTUS SUB-Q SCH (09:19)
--- NOTE | 2018-02-03 09:24 | Discharge Summary ---
Providers - Providers Date of Admission: 01/30/18 23:05 Attending physician: SRIRAM BONILLA MD 01/30/18 23:18 Consult to Physician [CONS] Routine Comment: Spoke with Dr. Beverly @ [id number] Consulting Provider: DEANGELO BEVERLY Physician Instructions: Reason For Exam: ICU ADMISSION FOR S/P TPA FOR LEFT SIDED WEAKNESS 01/31/18 05:46 Consult to Physician [CONS] Routine Comment: Consulting Provider: ROWENA JIMENEZ Physician Instructions: Reason For Exam: LEFT SIDED WEAKNESS WITH POLYCETHEMIA 01/31/18 06:00 Consult to Physician [CONS] Routine Comment: Consulting Provider: ADELINE VU Physician Instructions: Reason For Exam: 1. LEFT SIDED WEAKNESS 2. S/P TPA TREATMENT Physical Therapy Evaluation and Treat [CONS] Routine Comment: Reason For Exam: LEFT SIDED WEAKNESS Speech Therapy Evaluation and Treat [CONS] Routine Reason For Exam: LEFT SIDED WEAKNESS AND LEFT FACIAL DROOPING Primary care physician: NICOLE DESAI Hospitalization Reason for admission: cva Condition: Stable Hospital course: Patient is a 42-year-old -[place] male that presents emergency room possible stroke like symptoms and left-sided weakness and left-sided facial droop. Her nose, "EMS and the patient state that the last known well time was 1915. Patient denies chest pain shortness of breath. Patient states he is having difficulties walking. Patient states difficulties moving his left side. Patient states he can move his right side normally but the left side is not moving as well. Patient denies headache. Patient denies dizziness and chills. There has been some concern about his medical compliance. In the ED the patient received TPA at the ER after developing neurology consultation and was started before this on a Cardene drip for hypertensive emergency management. Initial head and neck CT showed no evidence of stroke. He was subsequently admitted in the ICU. His blood pressure has been very unstable-"high", per . He is also diabetic. Sleep reported as poor with some persistent sleepiness or tiredness. Patient continued to improve with blood pressure normalized. Patient was seen by neurology and started on antiplatelets and anticholesterol medication. We have a sense of the social patient about compliance with blood pressure and also with CPAP pressure verbalize understanding is to follow with his sleep physician. Also his primary care communicable disease specialist. He did continue to improve with physical therapy and currently is ambulating about 400 feet with recommendation for outpatient physical therapy speech therapy and occupational therapy. Acute stroke. Status post TPA. Hypertensive emergency. LESLEY SEVERE CARDIOMYOPATHY Diabetes mellitus Morbid obesity Disposition: DC-01 TO HOME OR SELFCARE Time spent for discharge: 35 mins Core Measure Documentation - Palliative Care Palliative Care/ Comfort Measures: Not Applicable - Core Measures Any of the following diagnoses?: stroke - VTE Discharge Requirements Deep Vein Thrombosis/Pulmonary Embolism Present on Admission: No - Stroke Discharge Requirements Statin for LDL = or >70 mg/dl on DC: Yes Anticoag for atrial fib/atrial flutter: Not Applicable Antithrombotic for ischemic stroke: Yes Exam - Physical Exam Narrative exam: VITAL SIGNS: Reviewed. GENERAL: The patient appeared well nourished and normally developed. Vital signs as documented. HEAD: No signs of head trauma. EYES: Pupils are equal. Extraocular motions intact. EARS: Hearing grossly intact. MOUTH: Oropharynx is normal. NECK: No adenopathy, no JVD. CHEST: Chest with clear breath sounds bilaterally. No wheezes, rales, or rhonchi. CARDIAC: Regular rate and rhythm. S1 and S2, without murmurs, gallops, or rubs. VASCULAR: No Edema. Peripheral pulses normal and equal in all extremities. ABDOMEN: Soft, without detectable tenderness. No sign of distention. No rebound or guarding, and no masses palpated. Bowel Sounds normal. MUSCULOSKELETAL: Good range of motion of all major joints. Extremities without clubbing, cyanosis or edema. NEUROLOGIC EXAM: Awake, alert oriented x 3. No focal sensory or strength deficits except for left upper extremity with motor strength of 4 over 5. Speech normal. Follows commands. PSYCHIATRIC: Mood normal. SKIN: No rash or lesions. - Constitutional Vitals: Temp Pulse Resp BP Pulse Ox 99.0 F 67 18 148/105 95 02/03/18 05:01 02/03/18 05:01 02/03/18 05:01 02/03/18 05:01 02/03/18 05:01 Plan Activity: advance as tolerated, fall precautions Diet: low cholesterol, low salt, diabetic Special Instructions: record daily weights, record daily BP diary, record blood sugar diary, physical therapy, occupational therapy Additional Instructions: follow with outpatient communicable disease specialist in 1 week. Must follow up with primary sleep physician in 1 week Follow up with: NICOLE DESAI MD [Primary Care Provider] - 3-5 Days STAPPENBECK,HARIKA A, MD [Staff Physician] - 7 Days Prescriptions: AtorvaSTATin [Lipitor] 40 mg PO QHS #30 tablet Aspirin 325 mg PO QDAY #30 tablet Carvedilol 25 mg PO BID #30 tablet Furosemide [Lasix TAB] 40 mg PO QDAY #30 tablet hydrALAZINE [Apresoline TAB] 100 mg PO TID #90 tab ISOSORBIDE MONOnitrate [Imdur ER] 60 mg PO DAILY #30 tablet Sacubitril/Valsartan [Entresto 97 mg-103 mg Tablet] 1 each PO BID #60 tablet Other Discharge Orders: Occupational Therapy (Amb) Location: None Selected Physicial Therapy (Amb) Location: None Selected Speech Therapy (Amb) Location: None Selected
--- NOTE | 2018-02-03 11:25 | Hem/Onc Progress Note ---
Assessment and Plan Hemoglobin improving. We will sign off. Needs neurologic follow-up as outpatient along with primary care. If hemoglobin starts to go up, I can see him as outpatient Subjective Date of service: 02/03/18 Interval history: Patient looks better. Still sleepy. Objective - Constitutional Vitals: Last Vital Signs Temp 99.0 F 02/03/18 05:01 Pulse 61 02/03/18 09:18 Resp 18 02/03/18 05:01 BP 159/102 02/03/18 09:18 Pulse Ox 99 02/03/18 10:46 General appearance: no acute distress Performance status: 3-limited selfcare - Neck Neck: supple - Respiratory Respiratory effort: Positive: normal - Cardiovascular Rhythm: regular - Gastrointestinal General gastrointestinal: Present: soft - Labs Lab Results: Laboratory Results - last 24 hr 02/02/18 02/02/18 02/02/18 11:45 15:52 22:48 WBC RBC Hgb Hct MCV MCH MCHC RDW Plt Count Lymph % (Auto) [place] % (Auto) Eos % (Auto) Baso % (Auto) Lymph # [place] # Eos # Baso # Seg Neutrophils % Seg Neutrophils # Sodium Potassium Chloride Carbon Dioxide Anion Gap BUN Creatinine Estimated GFR BUN/Creatinine Ratio Glucose POC Glucose 145 H 174 H 139 H Calcium 02/03/18 02/03/18 02/03/18 06:25 06:25 07:02 WBC 8.7 RBC 6.10 H Hgb 16.9 H Hct 51.4 H MCV 84 MCH 28 MCHC 33 RDW 16.0 H Plt Count 227 Lymph % (Auto) 15.0 [place] % (Auto) 11.9 H Eos % (Auto) 0.5 Baso % (Auto) 0.6 Lymph # 1.3 [place] # 1.0 H Eos # 0.0 Baso # 0.1 Seg Neutrophils % 72.0 H Seg Neutrophils # 6.3 Sodium 141 Potassium 4.0 Chloride 102.5 Carbon Dioxide 26 Anion Gap 17 BUN 15 Creatinine 1.1 Estimated GFR > 60 BUN/Creatinine Ratio 14 Glucose 161 H POC Glucose 135 H Calcium 10.0
--- NOTE | 2018-02-03 12:50 | Progress Note ---
Assessment and Plan Acute stroke. Status post TPA. Hypertensive emergency. Improved. Currently on Cardene drip LESLEY. May be primary underlying factor and/or trigger of the other events. Erythrocytosis. Concern for chronic hypoxemic process, possibly related to sleep apnea. I believe,concern for obesity hypoventilation syndrome is low, if his bicarbonate level < 28 with LESLEY Diabetes mellitus Morbid obesity Recommendations Maintain adequate BP control. Continue oxygen support if his operation noted below 89% CPAP at night per sleep lab lab titration report. Needs follow-up on this with sleep medicine after discharge DVT prophylaxis Follow-up on neurology and speech recommendations Discussed with patient and in detail. We'll sign off at this point. Reconsult if necessary. Subjective Date of service: 02/03/18 Principal diagnosis: Stroke, erythrocytosis,LESLEY,DM Interval history: No new neurological or respiratory complaints. He used CPAP last night but only briefly. Scheduled to be discharged to rehabilitation this morning Objective Vital Signs - 12hr 02/03/18 02/03/18 02/03/18 05:01 09:18 10:46 Temperature 99.0 F Pulse Rate 67 61 Respiratory 18 Rate Blood Pressure 148/105 159/102 O2 Sat by Pulse 95 99 Oximetry Constitutional: no acute distress, asleep, other (morbidly obese) Eyes: injected ENT: oropharynx moist Neck: supple, no JVD, other (large neck) Ascultation: Bilateral: clear, diminished breath sounds Cardiovascular: regular rate and rhythm Gastrointestinal: normoactive bowel sounds, non-distended Integumentary: normal Extremities: no cyanosis, no edema Neurologic: pupils equal and round, CN II-XII normal, other (asked sleep but easily arousable and able to answer my questions. Able to raise both extremities on command, and bee raiser appear to be equal. flares toes correctly) CBC and BMP: 02/03/18 06:25 02/03/18 06:25 ABG, PT/INR, D-dimer: PT/INR, D-dimer PT 13.8 Sec. (12.2-14.9) 01/30/18 20:09 INR 1.01 (0.87-1.13) 01/30/18 20:09 Abnormal lab findings: Abnormal Labs 01/30/18 01/30/18 01/30/18 20:09 20:09 20:09 RBC 6.08 H Hgb 17.0 H Hct 50.4 H MCV 83 L MCH RDW 16.0 H Lymph % (Auto) [place] % (Auto) 10.[address] [place] # Seg Neutrophils % Seg Neutrophils # APTT 20.9 L Glucose 138 H POC Glucose Calcium 10.3 H Total Protein LDL Cholesterol Direct HDL Cholesterol 01/30/18 01/30/18 01/31/18 20:09 20:33 07:00 RBC Hgb Hct MCV MCH RDW Lymph % (Auto) [place] % (Auto) [place] # Seg Neutrophils % Seg Neutrophils # APTT Glucose 139 H POC Glucose 139 H 143 H Calcium 10.5 H Total Protein 5.9 L LDL Cholesterol Direct HDL Cholesterol 01/31/18 01/31/18 01/31/18 08:05 12:28 17:09 RBC Hgb Hct MCV MCH RDW Lymph % (Auto) [place] % (Auto) [place] # Seg Neutrophils % Seg Neutrophils # APTT Glucose POC Glucose 174 H 144 H 156 H Calcium Total Protein LDL Cholesterol Direct HDL Cholesterol 01/31/18 02/01/18 02/01/18 18:09 04:00 04:00 RBC 6.70 H 6.48 H Hgb 18.3 H 18.1 H Hct 56.2 H 54.5 H MCV MCH 27 L RDW 16.2 H 15.9 H Lymph % (Auto) 12.[address] % (Auto) 7.[address] [place] # 1.0 H Seg Neutrophils % 79.1 H 76.7 H Seg Neutrophils # 7.9 H 8.1 H APTT Glucose 177 H POC Glucose Calcium Total Protein LDL Cholesterol Direct HDL Cholesterol 02/01/18 02/01/18 02/01/18 08:03 13:18 15:24 RBC Hgb Hct MCV MCH RDW Lymph % (Auto) [place] % (Auto) [place] # Seg Neutrophils % Seg Neutrophils # APTT Glucose POC Glucose 158 H 232 H 206 H Calcium Total Protein LDL Cholesterol Direct HDL Cholesterol 02/01/18 02/02/18 02/02/18 21:30 04:11 04:11 RBC 6.08 H Hgb 17.0 H Hct 51.4 H MCV MCH RDW 15.9 H Lymph % (Auto) [place] % (Auto) 12.[address] [place] # 1.3 H Seg Neutrophils % 72.4 H Seg Neutrophils # APTT Glucose POC Glucose 142 H Calcium Total Protein LDL Cholesterol Direct 150 H HDL Cholesterol 33 L 02/02/18 02/02/18 02/02/18 07:50 11:45 15:52 RBC Hgb Hct MCV MCH RDW Lymph % (Auto) [place] % (Auto) [place] # Seg Neutrophils % Seg Neutrophils # APTT Glucose POC Glucose 126 H 145 H 174 H Calcium Total Protein LDL Cholesterol Direct HDL Cholesterol 02/02/18 02/03/18 02/03/18 22:48 06:25 06:25 RBC 6.10 H Hgb 16.9 H Hct 51.4 H MCV MCH RDW 16.0 H Lymph % (Auto) [place] % (Auto) 11.[address] [place] # 1.0 H Seg Neutrophils % 72.0 H Seg Neutrophils # APTT Glucose 161 H POC Glucose 139 H Calcium Total Protein LDL Cholesterol Direct HDL Cholesterol 02/03/18 07:02 RBC Hgb Hct MCV MCH RDW Lymph % (Auto) [place] % (Auto) [place] # Seg Neutrophils % Seg Neutrophils # APTT Glucose POC Glucose 135 H Calcium Total Protein LDL Cholesterol Direct HDL Cholesterol
--- NOTE | 2018-02-03 13:03 | Consultation ---
History of Present Illness Consult date: 02/03/18 Consult reason: other (Cardiomyopathy) History of present illness: This is a 42 year old male with hypertension who was admitted 4 days ago with acute CVA which is being followed by neurology. Further evaluation with an echocardiogram revealed a severely decreased left ventricular function, ejection fraction 15-20% thus this cardiac consultation. Review of an echocardiogram done 2 years ago documents a 4 chamber dilated cardiomyopathy, ejection fraction of 40%. At that time, further ischemic cardiac evaluation with a thallium stress test that reports no reversible ischemia giving a diagnosis of nonischemic cardiomyopathy. Patient reports he is followed on a routine basis with a plant maintenance engineer at [facility]. Patient reports compliance with his medications. He denies chest pain, unusual shortness of breath and palpitations. There is no lower extremity edema. There are no reports of arrhythmias seen on telemetry. His presenting ECG is a sinus rhythm with LVH. Past History Social history: Family history: CAD, diabetes, hypertension Medications and Allergies Allergies Allergy/AdvReac Type Severity Reaction Status Date / Time No Known Allergies Allergy Verified 08/19/15 22:49 Home Medications Medication Instructions Recorded Confirmed Last Taken Type Insulin Glargine [Lantus VIAL] 5 units SUB-Q QAMDIAB #2 vial 11/23/15 01/30/18 Unknown Rx Insulin Glulisine [Apidra] 1 dose SUB-Q ACHS #1 vial 11/23/15 01/30/18 Unknown Rx Benzonatate [Tessalon Perles] 100 mg PO TID PRN 01/30/18 01/30/18 Unknown History Aspirin 325 mg PO QDAY #30 tablet 02/03/18 Unknown Rx AtorvaSTATin [Lipitor] 40 mg PO QHS #30 tablet 02/03/18 Unknown Rx Carvedilol 25 mg PO BID #30 tablet 02/03/18 Unknown Rx Furosemide [Lasix TAB] 40 mg PO QDAY #30 tablet 02/03/18 Unknown Rx ISOSORBIDE MONOnitrate [Imdur ER] 60 mg PO DAILY #30 tablet 02/03/18 Unknown Rx Sacubitril/Valsartan [Entresto 97 1 each PO BID #60 tablet 02/03/18 Unknown Rx mg-103 mg Tablet] hydrALAZINE [Apresoline TAB] 100 mg PO TID #90 tab 02/03/18 Unknown Rx Active Meds: Active Medications Aspirin (Aspirin) 325 mg PO QDAY [facility] Last Admin: 02/03/18 09:17 Dose: 325 mg Atorvastatin Calcium (Lipitor) 40 mg PO QHS [facility] Last Admin: 02/02/18 22:17 Dose: 40 mg Carvedilol (Coreg) 25 mg PO BID [facility] Last Admin: 02/03/18 09:18 Dose: 25 mg Dextrose (D50w (25gm) Syringe) 50 ml IV PRN PRN PRN Reason: Hypoglycemia Enoxaparin Sodium (Lovenox) 40 mg SUB-Q QDAY@2200 [facility] Last Admin: 02/02/18 22:20 Dose: 40 mg Furosemide (Lasix) 40 mg PO QDAY [facility] Last Admin: 02/03/18 09:18 Dose: 40 mg Hydralazine HCl (Apresoline) 100 mg PO TID [facility] Last Admin: 02/03/18 09:17 Dose: 100 mg Insulin Glargine (Lantus) 5 units SUB-Q QAMDIAB [facility] Last Admin: 02/03/18 09:19 Dose: 5 units Insulin Human Lispro (Humalog) 0 unit SUB-Q ACHS [facility]; Protocol Last Admin: 02/03/18 09:16 Dose: Not Given Isosorbide Mononitrate (Imdur) 60 mg PO DAILY [facility] Last Admin: 02/03/18 09:18 Dose: 60 mg Miscellaneous Medication (Sacubitril/Valsartan [Entresto 97 Mg-103 Mg Tablet]) 1 each PO BID [facility] Physical Examination Vital Signs Pulse Resp BP Pulse Ox 88 17 203/127 89 01/30/18 20:01 01/30/18 20:01 01/30/18 20:01 01/30/18 20:01 General appearance: no acute distress HEENT: Positive: PERRL Cardiac: Positive: Reg Rate and Rhythm Lungs: Positive: Decreased Breath Sounds Neuro: Positive: Weakness Results 02/03/18 06:25 02/03/18 06:25 CBC 02/03/18 Range/Units 06:25 WBC 8.7 (4.5-11.0) K/mm3 RBC 6.10 H (3.65-5.03) M/mm3 Hgb 16.9 H (11.8-15.2) gm/dl Hct 51.4 H (35.5-45.6) % Plt Count 227 (140-440) K/mm3 Lymph # 1.3 (1.2-5.4) K/mm3 [place] # 1.0 H (0.0-0.8) K/mm3 Eos # 0.0 (0.0-0.4) K/mm3 Baso # 0.1 (0.0-0.1) K/mm3 Comprehensive Metabolic Panel 02/03/18 Range/Units 06:25 Sodium 141 (137-145) mmol/L Potassium 4.0 (3.6-5.0) mmol/L Chloride 102.5 (98-107) mmol/L Carbon Dioxide 26 (22-30) mmol/L BUN 15 (9-20) mg/dL Creatinine 1.1 (0.8-1.5) mg/dL Glucose 161 H (75-100) mg/dL Calcium 10.0 (8.4-10.2) mg/dL Assessment and Plan Acute CVA Hypertension Dilated Nonischemic CMP EF 15-20% by echo this admission no reversible ischemia on MPI 08/2015 Diabetes
--- NOTE | 2018-02-03 20:04 | Progress Note ---
Assessment and Plan Assessment and plan: Patient is a 42-year-old -[place] male that presents emergency room possible stroke like symptoms and left-sided weakness and left-sided facial droop. Her nose, "EMS and the patient state that the last known well time was 1915. Patient denies chest pain shortness of breath. Patient states he is having difficulties walking. Patient states difficulties moving his left side. Patient states he can move his right side normally but the left side is not moving as well. Patient denies headache. Patient denies dizziness and chills. There has been some concern about his medical compliance. In the ED the patient received TPA at the ER after developing neurology consultation and was started before this on a Cardene drip for hypertensive emergency management. Initial head and neck CT showed no evidence of stroke. He was subsequently admitted in the ICU. His blood pressure has been very unstable-"high", per . He is also diabetic. Sleep reported as poor with some persistent sleepiness or tiredness. Acute stroke. Status post TPA. Hypertensive emergency. Improved. now off cardene drip, restarted home meds, Keep pressures relative considering extent of CVA. Further reduction in 24 hrs LESLEY Diabetes mellitus cardiomyopathy ef 15% Morbid obesity Plan Supportive care Adjust blood pressure medications Diabetes Control cardiology input noted CPAP settings. Transfer to telemetry Neurology and Pulmonary input noted dvt/gi PROPHY Plan of care discussed with family and patient History Interval history: Patient seen and examined in although lethargic but continues to improve. Hospitalist Physical - Physical exam Narrative exam: VITAL SIGNS: Reviewed. GENERAL: The patient appeared well nourished and normally developed. Vital signs as documented. HEAD: No signs of head trauma. EYES: Pupils are equal. Extraocular motions intact. EARS: Hearing grossly intact. MOUTH: Oropharynx is normal. NECK: No adenopathy, no JVD. CHEST: Chest with clear breath sounds bilaterally. No wheezes, rales, or rhonchi. CARDIAC: Regular rate and rhythm. S1 and S2, without murmurs, gallops, or rubs. VASCULAR: No Edema. Peripheral pulses normal and equal in all extremities. ABDOMEN: Soft, without detectable tenderness. No sign of distention. No rebound or guarding, and no masses palpated. Bowel Sounds normal. MUSCULOSKELETAL: Good range of motion of all major joints. Extremities without clubbing, cyanosis or edema. NEUROLOGIC EXAM: Awake but lethargic otherwise oriented x 3. No focal sensory or strength deficits except for left upper extremity with motor strength of over 5. Speech normal. Follows commands. PSYCHIATRIC: Mood normal. SKIN: No rash or lesions. - Constitutional Vitals: Temp Pulse Resp BP Pulse Ox 98.2 F 61 20 129/76 99 02/03/18 12:17 02/03/18 09:18 02/03/18 12:17 02/03/18 12:17 02/03/18 10:46 General appearance: Present: no acute distress Results - Labs CBC & Chem 7: 02/04/18 05:52 02/03/18 06:25 Labs: Laboratory Last Values WBC 8.7 K/mm3 (4.5-11.0) 02/03/18 06:25 RBC 6.10 M/mm3 (3.65-5.03) H 02/03/18 06:25 Hgb 16.9 gm/dl (11.8-15.2) H 02/03/18 06:25 Hct 51.4 % (35.5-45.6) H 02/03/18 06:25 MCV 84 fl (84-94) 02/03/18 06:25 MCH 28 pg (28-32) 02/03/18 06:25 MCHC 33 % (32-34) 02/03/18 06:25 RDW 16.0 % (13.2-15.2) H 02/03/18 06:25 Plt Count 227 K/mm3 (140-440) 02/03/18 06:25 Lymph % (Auto) 15.0 % (13.4-35.0) 02/03/18 06:25 [place] % (Auto) 11.9 % (0.0-7.3) H 02/03/18 06:25 Eos % (Auto) 0.5 % (0.0-4.3) 02/03/18 06:25 Baso % (Auto) 0.6 % (0.0-1.8) 02/03/18 06:25 Lymph # 1.3 K/mm3 (1.2-5.4) 02/03/18 06:25 [place] # 1.0 K/mm3 (0.0-0.8) H 02/03/18 06:25 Eos # 0.0 K/mm3 (0.0-0.4) 02/03/18 06:25 Baso # 0.1 K/mm3 (0.0-0.1) 02/03/18 06:25 Seg Neutrophils % 72.0 % (40.0-70.0) H 02/03/18 06:25 Seg Neutrophils # 6.3 K/mm3 (1.8-7.7) 02/03/18 06:25 PT 13.8 Sec. (12.2-14.9) 01/30/18 20:09 INR 1.01 (0.87-1.13) 01/30/18 20:09 APTT 20.9 Sec. (24.2-36.6) L 01/30/18 20:09 [place] Time 17.4 Sec. (15.1-19.6) 01/30/18 20:09 Sodium 141 mmol/L (137-145) 02/03/18 06:25 Potassium 4.0 mmol/L (3.6-5.0) 02/03/18 06:25 Chloride 102.5 mmol/L (98-107) 02/03/18 06:25 Carbon Dioxide 26 mmol/L (22-30) 02/03/18 06:25 Anion Gap 17 mmol/L 02/03/18 06:25 BUN 15 mg/dL (9-20) 02/03/18 06:25 Creatinine 1.1 mg/dL (0.8-1.5) 02/03/18 06:25 Estimated GFR > 60 ml/min 02/03/18 06:25 BUN/Creatinine Ratio 14 % 02/03/18 06:25 Glucose 161 mg/dL (75-100) H 02/03/18 06:25 POC Glucose 180 (70-105) H 02/03/18 16:48 Calcium 10.0 mg/dL (8.4-10.2) 02/03/18 06:25 Total Bilirubin 1.10 mg/dL (0.1-1.2) 01/30/18 20:33 AST 15 units/L (5-40) 01/30/18 20:33 ALT 18 units/L (7-56) 01/30/18 20:33 Alkaline Phosphatase 42 units/L (35-129) 01/30/18 20:33 Troponin T < 0.010 ng/mL (0.00-0.029) 01/30/18 20:09 Total Protein 5.9 g/dL (6.3-8.2) L 01/30/18 20:33 Albumin 3.9 g/dL (3.9-5) 01/30/18 20:33 Albumin/Globulin Ratio 2.0 % 01/30/18 20:33 Triglycerides 127 mg/dL (2-149) 02/02/18 04:11 Cholesterol 198 mg/dL (50-199) 02/02/18 04:11 LDL Cholesterol Direct 150 mg/dL (50-130) H 02/02/18 04:11 HDL Cholesterol 33 mg/dL (40-59) L 02/02/18 04:11 Cholesterol/HDL Ratio 6.00 % 02/02/18 04:11
[2018-02-03] MEDS: LOVENOX SUB-Q SCH (22:02)
[2018-02-04 06:30] LABS: Basophils # (Auto) 0.1 K/mm3 (0.0-0.1); Basophils % (Auto) 1.2 % (0.0-1.8); Eosinophils # (Auto) 0.1 K/mm3 (0.0-0.4); Eosinophils % (Auto) 1.5 % (0.0-4.3); Hematocrit 48.4 % (35.5-45.6); Hemoglobin 16.2 gm/dl (11.8-15.2); Lymphocytes # (Auto) 1.5 K/mm3 (1.2-5.4); Lymphocytes % (Auto) 20.5 % (13.4-35.0); Mean Corpuscular HGB Conc 34 % (32-34); Mean Corpuscular Hemoglobin 28 pg (28-32); Mean Corpuscular Volume 84 fl (84-94); Monocytes % (Auto) 13.4 % (0.0-7.3); Platelet Count 235 K/mm3 (140-440); Red Blood Count 5.76 M/mm3 (3.65-5.03); Red Cell Distribution Width 15.6 % (13.2-15.2)
--- NOTE | 2018-02-04 09:19 | Progress Note ---
Assessment and Plan Acute CVA Hypertension Hx Dilated Nonischemic CMP EF 15-20% by echo this admission no reversible ischemia on MPI 08/2015 Diabetes Recommendations: Medical management for his nonischemic cardiomyopathy with afterload reducing agents, beta blockers and oral antiplatelet therapy with aspirin. Patient advised to follow up in the outpatient setting with his primary vegetable packer at [facility]. Subjective Date of service: 02/04/18 Principal diagnosis: Stroke, erythrocytosis,LESLEY,DM Interval history: Patient has no cardiac complaints. Stable sinus rhythm on telemetry. Objective Vital Signs Temp Pulse Resp BP Pulse Ox 02/04/18 08:33 98 02/04/18 05:13 97.7 F 57 L 18 139/70 98 02/04/18 05:07 96.3 F L 59 L 18 143/94 95 02/03/18 23:10 76 18 97 02/03/18 22:41 98.2 F 67 20 135/85 98 02/03/18 22:01 56 L 126/94 02/03/18 22:00 22 100 02/03/18 21:03 64 18 131/71 93 02/03/18 12:17 98.2 F 20 129/76 02/03/18 10:46 99 02/03/18 09:18 61 159/102 - Physical Examination General: No Apparent Distress HEENT: Positive: PERRL Cardiac: Positive: Reg Rate and Rhythm Neuro: Positive: Weakness - Labs and Meds CBC 02/04/18 Range/Units 05:52 WBC 7.1 (4.5-11.0) K/mm3 RBC 5.76 H (3.65-5.03) M/mm3 Hgb 16.2 H (11.8-15.2) gm/dl Hct 48.4 H (35.5-45.6) % Plt Count 235 (140-440) K/mm3 Lymph # 1.5 (1.2-5.4) K/mm3 [place] # 1.0 H (0.0-0.8) K/mm3 Eos # 0.1 (0.0-0.4) K/mm3 Baso # 0.1 (0.0-0.1) K/mm3
[2018-02-04] MEDS: IMDUR PO SCH (11:33)
[2018-02-04] MEDS: COREG PO SCH (11:33)
[2018-02-04 11:34] VITALS: BP 139/72
[2018-02-04] MEDS: APRESOLINE PO SCH (11:38)
--- NOTE | 2018-02-08 08:59 | Vascular Lab Report ---
CAROTID DUPLEX STUDY: RIGHT PSVEDV CCA PROX:[id number] CCA DIST:5917 ICA PROX:3413 ICA MID:5323 ICA DIST:9032 ECA: 52 VERT: 41 13 LEFT PSVEDV CCA PROX:9818 CCA DIST:7319 ICA PROX:3515 ICA MID:4722 ICA DIST:6625 ECA: 69 VERT: 44 16 REASON FOR EXAM: Left sided weakness. COMMENTS ON THE RIGHT: Doppler frequency analysis is consistent with 16 to 49 percent diameter reduction of the internal carotid artery. Minimal amount of plaque is seen. The common carotid artery is patent. The external carotid artery is patent. The vertebral artery has antegrade flow. COMMENTS ON THE LEFT: Doppler frequency analysis is consistent with 16 to 49 percent diameter reduction of the internal carotid artery. Minimal amount of plaque is seen. The common carotid artery is patent. The external carotid artery is patent. The vertebral artery has antegrade flow. IMPRESSION: Less than 50% diameter reduction in the internal carotid arteries bilaterally.
== END 2018-02-04 17:00 | disposition home or self-care (01) | DRG 62 ==
LOC: ED 19:53 → CC1 23:05 → 4A 02-02 20:01 → 3A 02-03 22:22
PROVIDERS: ADMIT Internal Medicine; ATTEND Internal Medicine
PROC: 3E03317 Introduction of Other Thrombolytic into Peripheral Vein, Percutaneous Approach (ICD-10-PCS; principal; 2018-01-30)
PROC: 5A09357 Assistance with Respiratory Ventilation, Less than 24 Consecutive Hours, Continuous Positive Airway Pressure (ICD-10-PCS; 2018-02-03)
DX: I63.9 Cerebral infarction, unspecified (principal); G81.94 Hemiplegia, unspecified affecting left nondominant side; I16.1 Hypertensive emergency; I42.9 Cardiomyopathy, unspecified; I50.20 Unspecified systolic (congestive) heart failure; E11.9 Type 2 diabetes mellitus without complications; G47.33 Obstructive sleep apnea (adult) (pediatric); E66.01 Morbid (severe) obesity due to excess calories; D75.1 Secondary polycythemia; M19.90 Unspecified osteoarthritis, unspecified site; E83.52 Hypercalcemia; I11.0 Hypertensive heart disease with heart failure; Z82.49 Family history of ischemic heart disease and other diseases of the circulatory system; Z83.3 Family history of diabetes mellitus; Z68.35 Body mass index [BMI] 35.0-35.9, adult; Z79.4 Long term (current) use of insulin; Z79.899 Other long term (current) drug therapy; Z79.82 Long term (current) use of aspirin
CPT/HCPCS: 36415; 70450; 70496; 70498; 70551; 80048; 80053; 80061; 82962; 84484; 85025; 85027; 85610; 85670; 85730; 93005; 93010; 93306; 93880; 94660; 94760; 96374; 96375; A9270-GY; J1650; J1815; J2997; J7050; Q9967

== ENCOUNTER 2020-05-28 10:26 | Emergency (ER) | payer OTHER ==
[2020-05-28] MEDS ORDERED: ALTEPLASE 100 MG INJ KIT ONE (10:45)
[2020-05-28] MEDS ORDERED: niCARdipine DRIP 40 MG/200 ML BAG ONE (10:57)
[2020-05-28] MEDS ORDERED: niCARdipine 50 MG in SODIUM CHLORIDE 0.9% 250ML 230 ML IV SCH (11:00)
[2020-05-28] MEDS ORDERED: SODIUM CHLORIDE 0.9% 50 ML IVPB IV ONE (11:11)
--- NOTE | 2020-05-28 11:23 | Emergency Department Report ---
ED Neuro Deficit HPI - General Chief Complaint: Neuro Symptoms/Deficit Stated Complaint: STROKE Time Seen by Provider: 05/28/20 10:30 Source: patient, EMS Mode of arrival: Stretcher Limitations: No Limitations - History of Present Illness Initial Comments: This is a 45-year old hypertensive and diabetic man who experienced stroke symptoms he states at 930 this morning. He states that he was able to walk when he acutely experienced left-sided weakness and numbness affecting both upper and lower extremity. Apparently he is noncompliant with his antihypertensive medication and possibly his insulin. He was transported to this facility as a code stroke. He was found to have extremely elevated blood pressure. His initial Accu-Chek in the field was greater than 500 but repeated it was in the high 300s here. Patient was treated at this facility in 2018 for stroke. Apparently he had left-sided weakness associated with accelerated hypertension. According to the record he was given TPA. His initial CT was essentially normal. An MRI obtained on that admission was indicative of a large frontoparietal acute and subacute infarct. I spoke to Dr. Atwood, the radiologist regarding this MRI study and the current CT. He starts that although the previous 2018 MRI report did not mention hemorrhage, he "is certain" there is hemorrhage on this MR study which was obtained after TPA was administered in 2018. I have brought this information to the attention of the teleneurologist. The patient states that he had "no effect from the prior stroke in 2018." The available records do appear to indicate that he had left upper extremity weakness on discharge. However, it appears certain that the patient was ambulatory until this a.m. at approximately 930. -: Sudden, minutes(s) Location: left arm, left leg History of same: Yes Place: home Severity: severe Quality: weak, numb Improves With: none Worsens With: none On Anticoagulants: No Context: sudden onset Associated Symptoms: denies other symptoms - Related Data Home Medications: Home Medications Medication Instructions Recorded Confirmed Last Taken Benzonatate [Tessalon Perles] 100 mg PO TID PRN 01/30/18 01/30/18 Unknown Previous Rx's Medication Instructions Recorded Last Taken Type Insulin Glargine [Lantus VIAL] 5 units SUB-Q QAMDIAB #2 vial 11/23/15 Unknown Rx Insulin Glulisine [Apidra] 1 dose SUB-Q ACHS #1 vial 11/23/15 Unknown Rx Aspirin 325 mg PO QDAY #30 tablet 02/03/18 Unknown Rx AtorvaSTATin [Lipitor] 40 mg PO QHS #30 tablet 02/03/18 Unknown Rx Furosemide [Lasix TAB] 40 mg PO QDAY #30 tablet 02/03/18 Unknown Rx ISOSORBIDE MONOnitrate [Imdur ER] 60 mg PO DAILY #30 tablet 02/03/18 Unknown Rx Sacubitril/Valsartan [Entresto 97 1 each PO BID #60 tablet 02/03/18 Unknown Rx mg-103 mg Tablet] carvediloL [Carvedilol] 25 mg PO BID #30 tablet 02/03/18 Unknown Rx hydrALAZINE [Apresoline TAB] 100 mg PO TID #90 tab 02/03/18 Unknown Rx Allergies/Adverse Reactions: Allergies Allergy/AdvReac Type Severity Reaction Status Date / Time No Known Allergies Allergy Verified 08/19/15 22:49 ED Review of Systems ROS: Stated complaint: STROKE Other details as noted in HPI Constitutional: denies: chills, fever Eyes: eye discharge. denies: eye pain ENT: denies: ear pain, throat pain Respiratory: denies: cough, shortness of breath, wheezing Cardiovascular: denies: chest pain, palpitations Endocrine: no symptoms reported Gastrointestinal: denies: abdominal pain, vomiting Genitourinary: other (No symptoms reported) Musculoskeletal: denies: back pain, arthralgia Skin: denies: rash, lesions Neurological: weakness, numbness. denies: headache Psychiatric: denies: anxiety, depression Hematological/Lymphatic: denies: easy bleeding, easy bruising ED Past Medical Hx - Past Medical History Previous Medical History?: Yes Hx Hypertension: Yes Hx Congestive Heart Failure: Yes Hx Diabetes: Yes Hx Arthritis: Yes Hx Headaches / Migraines: No Hx Asthma: Yes Hx COPD: No - Social History Smoking Status: Never Smoker Substance Use Type: None - Medications Home Medications: Home Medications Medication Instructions Recorded Confirmed Last Taken Type Insulin Glargine [Lantus VIAL] 5 units SUB-Q QAMDIAB #2 vial 11/23/15 01/30/18 Unknown Rx Insulin Glulisine [Apidra] 1 dose SUB-Q ACHS #1 vial 11/23/15 01/30/18 Unknown Rx Benzonatate [Tessalon Perles] 100 mg PO TID PRN 01/30/18 01/30/18 Unknown History Aspirin 325 mg PO QDAY #30 tablet 02/03/18 Unknown Rx AtorvaSTATin [Lipitor] 40 mg PO QHS #30 tablet 02/03/18 Unknown Rx Furosemide [Lasix TAB] 40 mg PO QDAY #30 tablet 02/03/18 Unknown Rx ISOSORBIDE MONOnitrate [Imdur ER] 60 mg PO DAILY #30 tablet 02/03/18 Unknown Rx Sacubitril/Valsartan [Entresto 97 1 each PO BID #60 tablet 02/03/18 Unknown Rx mg-103 mg Tablet] carvediloL [Carvedilol] 25 mg PO BID #30 tablet 02/03/18 Unknown Rx hydrALAZINE [Apresoline TAB] 100 mg PO TID #90 tab 02/03/18 Unknown Rx ED Neuro Physical Exam - General Limitations: Other (Somewhat poorly cooperative) General appearance: alert Suspected Stroke: Yes - Head Head exam: Present: atraumatic, normocephalic - Eye Eye exam: Present: normal appearance. Absent: scleral icterus - ENT ENT exam: Present: mucous membranes moist - Neck Neck exam: Present: normal inspection - Respiratory Respiratory exam: Present: normal lung sounds bilaterally. Absent: respiratory distress - Cardiovascular Cardiovascular Exam: Present: regular rate, normal rhythm. Absent: systolic murmur, diastolic murmur, rubs, gallop - GI/Abdominal GI/Abdominal exam: Present: soft, normal bowel sounds. Absent: distended, tenderness, guarding, rebound - Rectal Rectal exam: Present: deferred - Extremities Exam Extremities exam: Present: normal inspection - Back Exam Back exam: Present: normal inspection - Neurological Exam Neurological exam: Present: alert, oriented X3, motor sensory deficit (Left braulio plegia). Absent: CN II-XII intact (Facial paresis) - NIHSS Assessment Interval: Baseline 1a. Level of Consciousness: alert/keenly responsive 1b. LOC Questions: answers both correctly 1c. LOC Commands: performs tasks correctly 2. Best Gaze: partial gaze palsy 3. Visual: partial hemianopia 4. Facial Palsy: minor paralysis 5b. Motor Arm Right: no drift 5a. Motor Arm Left: no movement 6a. Motor Leg Left: no movement 6b. Motor Leg Right: no drift 7. Limb Ataxia: absent 8. Sensory: severe/total sensory loss 9. Best Language: no aphasia 10. Dysarthria: normal 11. Extinction/Inattention: no abnormality Total Score: 13 Stroke Severity: Moderate Stroke - Psychiatric Psychiatric exam: Present: depressed, anxious - Skin Skin exam: Present: warm, dry, intact, normal color. Absent: rash ED Course Vital Signs 05/28/20 05/28/20 10:55 11:52 Temperature 98.6 F Pulse Rate 91 H 91 H Respiratory 15 Rate Blood Pressure 193/143 Blood Pressure 166/119 [Left] O2 Sat by Pulse 97 Oximetry - Reevaluation(s) Reevaluation #1: Patient was given labetalol initially and a Cardene drip was ordered as well. Blood pressure is being titrated down. I spoke to the teleneurologist, Dr. Del Rosario regarding the plan for this patient. At the current time, he is not a candidate for TPA due to blood pressure exclusion. Additionally his glucose may be over 400. Awaiting, value. However, although the patient does have a moderately severe stroke, he has a his tory of post TPA hemorrhage. Radiologist states that he "is certain that hemorrhage is present on the 2018 scan". The teleneurologist now states that this is a "absolute contraindication" to TPA. That is, a history of cerebral hemorrhage status post TPA. I spoke to the teleneurologist regarding the possibility of transfer for angiographic study and possible intervention. He stated that their protocol is to do the CT angio here. Therefore this has been ordered. Thus currently, unless there is any change in the current medical decision making, the patient is not a candidate for TPA at this time. 05/28/20 11:30 Reevaluation #2: CT angio report now read. The patient has a right MCA occlusion. I paged the stroke neurologist Dr. Hook at [facility]. He was very kind to accept this patient for possible intervention. We are in the process of emergency transfer now. 05/28/20 12:29 Reevaluation #3: Lab informed chemistries still pending. They are looking into it. I have given the patient a small dose of IV insulin. 05/28/20 12:34 05/28/20 12:37 Helicopter transport is requested. - Lab Data Result diagrams: 05/28/20 10:40 Lab Results 11/05/28/20 05/28/20 Range/Units 10:40 10:40 10:53 WBC 5.6 (4.5-11.0) K/mm3 RBC 6.79 H (3.65-5.03) M/mm3 Hgb 18.0 H (11.8-15.2) gm/dl Hct 53.8 H (35.5-45.6) % MCV 79 L (84-94) fl MCH 27 L (28-32) pg MCHC 33 (32-34) % RDW 14.3 (13.2-15.2) % Plt Count 237 (140-440) K/mm3 Lymph % (Auto) 33.8 (13.4-35.0) % [place] % (Auto) 6.8 (0.0-7.3) % Eos % (Auto) 0.7 (0.0-4.3) % Baso % (Auto) 1.2 (0.0-1.8) % Lymph # (Auto) 1.9 (1.2-5.4) K/mm3 [place] # (Auto) 0.4 (0.0-0.8) K/mm3 Eos # (Auto) 0.0 (0.0-0.4) K/mm3 Baso # (Auto) 0.1 (0.0-0.1) K/mm3 Seg Neutrophils % 57.5 (40.0-70.0) % Seg Neutrophils # 3.2 (1.8-7.7) K/mm3 PT 13.1 (12.2-14.9) Sec. INR 0.98 (0.87-1.13) APTT 22.6 L (24.2-36.6) Sec. POC Glucose 383 H (70-105) mg/dL Laboratory Results - last 24 hr 05/28/20 05/28/20 05/28/20 10:40 10:40 10:53 WBC 5.6 RBC 6.79 H Hgb 18.0 H Hct 53.8 H MCV 79 L MCH 27 L MCHC 33 RDW 14.3 Plt Count 237 Lymph % (Auto) 33.8 [place] % (Auto) 6.8 Eos % (Auto) 0.7 Baso % (Auto) 1.2 Lymph # (Auto) 1.9 [place] # (Auto) 0.4 Eos # (Auto) 0.0 Baso # (Auto) 0.1 Seg Neutrophils % 57.5 Seg Neutrophils # 3.2 PT 13.1 INR 0.98 APTT 22.6 L POC Glucose 383 H - EKG Data EKG shows normal: sinus rhythm, axis (LAFB), intervals, QRS complexes (Consider old inferior zone. LAFB, LVH), ST-T waves Interpretation: LVH - Radiology Data Radiology results: report reviewed, image reviewed Critical Care Time: Yes Critical care time in (mins) excluding proc time.: 120 Critical care attestation.: If time is entered above; I have spent that time in minutes in the direct care of this critically ill patient, excluding procedure time. ED Disposition Clinical Impression: CVA (cerebral vascular accident) Qualifiers: CVA mechanism: unspecified Qualified Code(s): I63.9 - Cerebral infarction, unspecified Occlusion of middle cerebral artery Qualifiers: Laterality: right Qualified Code(s): I66.01 - Occlusion and stenosis of right middle cerebral artery Disposition: DC-09 OP ADMIT IP TO THIS HOSP Is pt being admited?: Yes Does the pt Need Aspirin: No Condition: Stable Additional Instructions: transfer to [facility] Referrals: PRIMARY CARE, [Primary Care Provider] - 3-5 Days Time of Disposition: 12:35
[2020-05-28 11:29] LABS: Basophils # (Auto) 0.1 K/mm3 (0.0-0.1); Basophils % (Auto) 1.2 % (0.0-1.8); Eosinophils % (Auto) 0.7 % (0.0-4.3); Hematocrit 53.8 % (35.5-45.6); Lymphocytes # (Auto) 1.9 K/mm3 (1.2-5.4); Lymphocytes % (Auto) 33.8 % (13.4-35.0); Mean Corpuscular HGB Conc 33 % (32-34); Mean Corpuscular Volume 79 fl (84-94); Monocytes # (Auto) 0.4 K/mm3 (0.0-0.8); Monocytes % (Auto) 6.8 % (0.0-7.3); Platelet Count 237 K/mm3 (140-440); Red Blood Count 6.79 M/mm3 (3.65-5.03); Red Cell Distribution Width 14.3 % (13.2-15.2)
[2020-05-28] MEDS ORDERED: ALTEPLASE 100 MG INJ KIT IV ONE ×2 (11:29)
[2020-05-28 11:38] LABS: INR 0.98 (0.87-1.13)
[2020-05-28 11:39] LABS: Partial Thromboplastin Time 22.6 Sec. (24.2-36.6)
--- NOTE | 2020-05-28 12:23 | Emergency Department Report ---
ED Neuro Deficit HPI - General Chief Complaint: Neuro Symptoms/Deficit Stated Complaint: STROKE Time Seen by Provider: 05/28/20 10:30 Source: patient, EMS Mode of arrival: Stretcher Limitations: Other (Somewhat poorly cooperative) - History of Present Illness Initial Comments: [facility] Date of Service: 05/28/2020 10:16:27 Impression: Right Hemispheric Infarct MCA Distribution Infarct Comments/Sign-Out: His blood pressure is very high to 10/106 and even after labetalol twice and eight Cardene drip it has not come down to an acceptable level for probably therapy but then we found out about prior hemorrhage. His blood sugar was initially 574 and was 383 in the ED. Mechanism of Stroke: Not Clear Metrics: Last Known Well: 05/28/2020 09:30:11 [employer] Notification Time: 05/28/2020 10:16:00 Arrival Time: 05/28/2020 10:25:35 Stamp Time: 05/28/2020 10:16:27 Time First Login Attempt: 05/28/2020 10:19:54 Video Start Time: 05/28/2020 10:19:54 Symptoms: Left side paralysis NIHSS Start Assessment Time: 05/28/2020 10:22:00 Patient is not a candidate for Alteplase/Activase. Patient was not deemed candidate for Alteplase/Activase thrombolytics because of Current or Previous ICH. Weight Noted by Staff: 109.1 kg Video End Time: 05/28/2020 11:20:00 CT head showed no acute hemorrhage or acute core infarct. CT head was reviewed and results were: Remote right MCA infarction frontal and temporal but no evidence of acute ischemia, hemorrhage, or mass lesion. Clinical Presentation is Suggestive of Large Vessel Occlusive Disease, Recommendations are as Follows CTA Head and Neck. Radiologist was not called back for review of advanced imaging because Not completed, intervention possible ED Physician notified of diagnostic impression and management plan on 05/28/2020 11:18:00 Our recommendations are outlined below. Recommendations: Activate Stroke Protocol Admission/Order Set Stroke/Telemetry Floor Neuro Checks Bedside Swallow Eval DVT Prophylaxis IV Fluids, Normal Saline Head of Bed 30 Degrees Euglycemia and Avoid Hyperthermia (PRN Acetaminophen) Hold Antithrombotics for Now Pending transfer to major center for possible intervention Sign Out: Discussed with Emergency Department Provider History of Present Illness: Patient is a 45 year old Male. Patient was brought by EMS for symptoms of Left side paralysis This 45-year-old man has a right MCA stroke in 2018. He received alteplase. We f ound out after proceeding along the path of optimizing his blood pressure and blood sugar for thrombolytic therapy that he has some cerebral hemorrhage after the procedure last time. This morning at 0930 he developed significant paralysis of the left side and a right gaze. He didn't is a speech. His blood pressure is very high in sugar was very high, 574 by EMS. In addition to risk factors below he has had congestive heart failure. Medications unknown Last seen normal was within 4.5 hours. There is history of hemorrhagic complications or intracranial hemorrhage. There is no history of Recent Anticoagulants. There is no history of recent major surgery. There is no history of recent stroke. Past Medical History: Hypertension Diabetes Mellitus Stroke There is NO history of Hyperlipidemia There is NO history of Atrial Fibrillation There is NO history of Coronary Artery Disease Anticoagulant use: No Antiplatelet use: No Examination: BP(192/126 most recently), Pulse(110), Blood Glucose(574 then 383) 1A: Level of Consciousness - Alert; keenly responsive + 0 1B: Ask Month and Age - Both Questions Right + 0 1C: Blink Eyes & Squeeze Hands - Performs Both Tasks + 0 2: Test Horizontal Extraocular Movements - Forced Gaze Palsy: Cannot Be Overcome + 2 3: Test Visual Mcadams - Complete Hemianopia + 2 4: Test Facial Palsy (Use Grimace if Obtunded) - Minor paralysis (flat nasolabial fold, smile asymmetry) + 1 5A: Test Left Arm Motor Drift - No Movement + 4 5B: Test Right Arm Motor Drift - No Drift for 10 Seconds + 0 6A: Test Left Leg Motor Drift - No Movement + 4 6B: Test Right Leg Motor Drift - No Drift for 5 Seconds + 0 7: Test Limb Ataxia (FNF/Heel-Elizabeth) - No Ataxia + 0 8: Test Sensation - Complete Loss: Cannot Sense Being Touched At All + 2 9: Test Language/Aphasia - Normal; No aphasia + 0 10: Test Dysarthria - Normal + 0 11: Test Extinction/Inattention - No abnormality + 0 NIHSS Score: 15 Pre-Morbid Modified Ranking Scale: 2 Points = Slight disability; unable to carry out all previous activities, but able to look after own affairs without assistance Patient/Family was informed the Neurology Consult would happen via TeleHealth consult by way of interactive audio and video telecommunications and consented to receiving care in this manner. Due to the immediate potential for life-threatening deterioration due to underlying acute neurologic illness, I spent 70 minutes providing critical care. This time includes time for face to face visit via telemedicine, review of medical records, imaging studies and discussion of findings with providers, the patient and/or family. Dr Masoud Del Rosario [facility] Case [id number] Location: left arm, left leg History of same: Yes Place: home Severity: severe Quality: weak, numb Improves With: none Worsens With: none On Anticoagulants: No - Related Data Home Medications: Home Medications Medication Instructions Recorded Confirmed Last Taken Benzonatate [Tessalon Perles] 100 mg PO TID PRN 01/30/18 01/30/18 Unknown Previous Rx's Medication Instructions Recorded Last Taken Type Insulin Glargine [Lantus VIAL] 5 units SUB-Q QAMDIAB #2 vial 11/23/15 Unknown Rx Insulin Glulisine [Apidra] 1 dose SUB-Q ACHS #1 vial 11/23/15 Unknown Rx Aspirin 325 mg PO QDAY #30 tablet 02/03/18 Unknown Rx AtorvaSTATin [Lipitor] 40 mg PO QHS #30 tablet 02/03/18 Unknown Rx Furosemide [Lasix TAB] 40 mg PO QDAY #30 tablet 02/03/18 Unknown Rx ISOSORBIDE MONOnitrate [Imdur ER] 60 mg PO DAILY #30 tablet 02/03/18 Unknown Rx Sacubitril/Valsartan [Entresto 97 1 each PO BID #60 tablet 02/03/18 Unknown Rx mg-103 mg Tablet] carvediloL [Carvedilol] 25 mg PO BID #30 tablet 02/03/18 Unknown Rx hydrALAZINE [Apresoline TAB] 100 mg PO TID #90 tab 02/03/18 Unknown Rx Allergies/Adverse Reactions: Allergies Allergy/AdvReac Type Severity Reaction Status Date / Time No Known Allergies Allergy Verified 08/19/15 22:49 ED Review of Systems ROS: Stated complaint: STROKE Other details as noted in HPI Constitutional: denies: chills, fever Eyes: eye discharge. denies: eye pain ENT: denies: ear pain, throat pain Respiratory: denies: cough, shortness of breath, wheezing Cardiovascular: denies: chest pain, palpitations Endocrine: no symptoms reported Gastrointestinal: denies: abdominal pain, vomiting Genitourinary: other (No symptoms reported) Musculoskeletal: denies: back pain, arthralgia Skin: denies: rash, lesions Neurological: weakness, numbness. denies: headache Psychiatric: denies: anxiety, depression Hematological/Lymphatic: denies: easy bleeding, easy bruising ED Past Medical Hx - Past Medical History Previous Medical History?: Yes Hx Hypertension: Yes Hx Congestive Heart Failure: Yes Hx Diabetes: Yes Hx Arthritis: Yes Hx Headaches / Migraines: No Hx Asthma: Yes Hx COPD: No - Social History Smoking Status: Never Smoker Substance Use Type: None - Medications Home Medications: Home Medications Medication Instructions Recorded Confirmed Last Taken Type Insulin Glargine [Lantus VIAL] 5 units SUB-Q QAMDIAB #2 vial 11/23/15 01/30/18 Unknown Rx Insulin Glulisine [Apidra] 1 dose SUB-Q ACHS #1 vial 11/23/15 01/30/18 Unknown Rx Benzonatate [Tessalon Perles] 100 mg PO TID PRN 01/30/18 01/30/18 Unknown Hi story Aspirin 325 mg PO QDAY #30 tablet 02/03/18 Unknown Rx AtorvaSTATin [Lipitor] 40 mg PO QHS #30 tablet 02/03/18 Unknown Rx Furosemide [Lasix TAB] 40 mg PO QDAY #30 tablet 02/03/18 Unknown Rx ISOSORBIDE MONOnitrate [Imdur ER] 60 mg PO DAILY #30 tablet 02/03/18 Unknown Rx Sacubitril/Valsartan [Entresto 97 1 each PO BID #60 tablet 02/03/18 Unknown Rx mg-103 mg Tablet] carvediloL [Carvedilol] 25 mg PO BID #30 tablet 02/03/18 Unknown Rx hydrALAZINE [Apresoline TAB] 100 mg PO TID #90 tab 02/03/18 Unknown Rx ED Neuro Physical Exam - General Limitations: Other (Somewhat poorly cooperative) General appearance: alert Suspected Stroke: Yes - NIHSS Assessment Interval: Baseline 1a. Level of Consciousness: alert/keenly responsive 1b. LOC Questions: answers both correctly 1c. LOC Commands: performs tasks correctly 2. Best Gaze: forced deviation 3. Visual: complete hemianopia 4. Facial Palsy: minor paralysis 5b. Motor Arm Right: no drift 5a. Motor Arm Left: no movement 6a. Motor Leg Left: no movement 6b. Motor Leg Right: no drift 7. Limb Ataxia: absent 8. Sensory: severe/total sensory loss 9. Best Language: no aphasia 10. Dysarthria: normal 11. Extinction/Inattention: no abnormality Total Score: 15 Stroke Severity: Moderate Stroke ED Course Vital Signs 05/28/20 05/28/20 10:55 11:52 Temperature 98.6 F Pulse Rate 91 H 91 H Respiratory 15 Rate Blood Pressure 193/143 Blood Pressure 166/119 [Left] O2 Sat by Pulse 97 Oximetry - Lab Data Result diagrams: 05/28/20 10:40 Lab Results 05/28/20 05/28/20 05/28/20 Range/Units 10:40 10:40 10:53 WBC 5.6 (4.5-11.0) K/mm3 RBC 6.79 H (3.65-5.03) M/mm3 Hgb 18.0 H (11.8-15.2) gm/dl Hct 53.8 H (35.5-45.6) % MCV 79 L (84-94) fl MCH 27 L (28-32) pg MCHC 33 (32-34) % RDW 14.3 (13.2-15.2) % Plt Count 237 (140-440) K/mm3 Lymph % (Auto) 33.8 (13.4-35.0) % [place] % (Auto) 6.8 (0.0-7.3) % Eos % (Auto) 0.7 (0.0-4.3) % Baso % (Auto) 1.2 (0.0-1.8) % Lymph # (Auto) 1.9 (1.2-5.4) K/mm3 [place] # (Auto) 0.4 (0.0-0.8) K/mm3 Eos # (Auto) 0.0 (0.0-0.4) K/mm3 Baso # (Auto) 0.1 (0.0-0.1) K/mm3 Seg Neutrophils % 57.5 (40.0-70.0) % Seg Neutrophils # 3.2 (1.8-7.7) K/mm3 PT 13.1 (12.2-14.9) Sec. INR 0.98 (0.87-1.13) APTT 22.6 L (24.2-36.6) Sec. POC Glucose 383 H (70-105) mg/dL Critical care attestation.: If time is entered above; I have spent that time in minutes in the direct care of this critically ill patient, excluding procedure time. ED Disposition Clinical Impression: CVA (cerebral vascular accident) Disposition: OP ADMIT IP TO THIS HOSP Is pt being admited?: Yes Condition: Stable Additional Instructions: transfer to [facility] Referrals: PRIMARY CARE, [Primary Care Provider] - 3-5 Days
--- NOTE | 2020-05-28 12:24 | Cat Scan Report ---
NONENHANCED CT SCAN OF THE BRAIN: INDICATION: Left-sided weakness; less than 6 hours upon awakening TECHNIQUE: Routine CT head without contrast. Sagittal and coronal reformatted images were obtained. A ll CT scans at this location are performed using CT dose reduction for ALARA by means of automated ex posure control. COMPARISON: MR scan of the brain from 02/01/[address] scan of the head from 01/30/2018 FINDINGS: BRAIN / INTRACRANIAL CONTENTS: Hemorrhage:No intracranial hemorrhage; no subarachnoid hemorrhage Stroke mimics: No subdural or epidural hematoma or space taking lesion Encephalomalacia in the right middle and inferior frontal gyri from the previous hemorrhagic infarcti on seen in January 2018, compensatory enlargement of right lateral ventricle Acute/subacute territorial infarction: Soto-white matter interface: No new area of blurring Insular cortex: Left insular cortex normal; encephalomalacia in the right insular cortex an teriorly Basal ganglia: Normal Wedge shaped parenchymal low density area: Not present Cortical sulci: Not effaced in the areas not involved by the previously seen infarction Lacunar infarctions: No acute lacunae Vasculopathy: Dense middle cerebral artery sign: Not present Internal carotid artery terminus: Normal Basilar artery:Normal Middle cerebral artery branches in the sylvian fissure (Dot sign): Normal in the left sylvian fiss ure Calcified embolus: Not present Chronic lesions: Encephalomalacia in the right middle and inferior frontal gyri with extension into a nterior insula cortex White matter: Craniocervical junction:No significant abnormality Orbits:No significant abnormality Paranasal sinuses/mastoids:No significant abnormality Additional findings: None IMPRESSION: No intracerebral hemorrhage or stroke mimics Encephalomalacia in the right middle and inferior frontal gyri No acute/subacute infarction This exam was performed as part of a code stroke protocol. The exam was completed at on 05/28/2020 9: 55 AM. The exam was reviewed at 10:00 AM and ER physician was notified at 10:03 AM. Signer Name: Sonia Coronel MD Signed: 05/28/2020 11:06 AM Workstation Name: [id number]
--- NOTE | 2020-05-28 12:25 | Cat Scan Report ---
CT angio neck, CT angio head HISTORY: Stroke COMPARISON: January 30 2018 TECHNIQUE: CTA of the neck and head is performed after IV contrast. 3-D/MIP reformats were postproces sed. Percentage stenosis is determined by direct quantitative measurements of diseased internal min tid artery diameter compared with normal distal internal carotid artery reference segments or by crit eria similar to NASCET where applicable. All CT scans at this location are performed using CT dose re duction for ALARA by means of automated exposure control. FINDINGS: CTA NECK: Aortic arch: No significant abnormality. Cervical vertebral arteries: No occlusion or hemodynamically significant stenosis. Common Carotid arteries: No occlusion or hemodynamically significant stenosis. Internal carotid arteries: No occlusion or hemodynamically significant stenosis. There is a 3cm lesion seen in the right upper lobe on image on image 35 of series 4. CTA HEAD: Intracranial vertebral arteries: No occlusion or significant stenosis. Basilar artery: No occlusion or significant stenosis. Posterior cerebral arteries: No occlusion or significant stenosis. Intracranial internal carotid arteries: No occlusion or significant stenosis. Anterior cerebral arteries: No occlusion or significant stenosis. Middle cerebral arteries: Occlusion of the distal right M1 horizontal segment of the middle cerebral artery. There is decreased opacification in the right middle cerebral arteries which is less than 50% compared to the contralateral side. However, there is a large encephalomalacia in the right middle c erebral artery territory on CT head within the superior middle cerebral artery territory. There is de creased collateral circulation to the inferior MCA territory, there is no loss of beatty-white matter d ifferentiation on CT head. No aneurysm. Additional findings: None. IMPRESSION: 1. CTA NECK: No occlusion or significant stenosis of the carotid or vertebral arteries. 2. 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 There is encephalomalacia withi n the superior middle cerebral artery territory. There is significantly decreased collateral circulat ion to the inferior and superior territory without evidence of acute infarction on CT head. 3. 3 cm right upper lobe mass which could be neoplastic in etiology. Recommend dedicated CT chest I informed nurse who is taking care of this patient via telephone at [id number]. The physician was busy and could not take the message correctly. Signer Name: Brant Rouse MD Signed: 05/28/2020 12:20 PM Workstation Name: [id number]
[2020-05-28] MEDS ORDERED: ASPIRIN 325 MG TAB PO ONE (12:31)
[2020-05-28] MEDS ORDERED: INSULIN REGULAR, HUMAN 100 UNIT/ML 3ML VIAL IV ONE (12:33)
[2020-05-28 12:56] LABS: Alanine Aminotransferase 16 units/L (7-56); Albumin 4.3 g/dL (3.9-5); BUN/Creatinine Ratio 10; Blood Urea Nitrogen 10 mg/dL (9-20); Calcium 10.4 mg/dL (8.4-10.2); Hemolysis Index 59
[2020-05-28] MEDS ORDERED: INSULIN REGULAR, HUMAN 100 UNITS/1 ML ONE (13:00)
[2020-05-28 13:04] LABS: Bilirubin,Direct < 0.2 mg/dL (0-0.2)
--- NOTE | 2020-05-28 13:13 | XRay Report ---
XR chest 1V ap INDICATION / CLINICAL INFORMATION: hypertension. COMPARISON: None available. FINDINGS: SUPPORT DEVICES: None. HEART / MEDIASTINUM: Cardiac silhouette is upper normal. No pulmonary vasculature congestion. LUNGS / PLEURA: Low lung volumes. No significant pulmonary or pleural abnormality. No pneumothorax. ADDITIONAL FINDINGS: No significant additional findings. IMPRESSION: 1. No acute findings. Signer Name: Ramon Valle MD Signed: 05/28/2020 1:08 PM Workstation Name: [id number]
[2020-05-28] MEDS ORDERED: SODIUM CHLORIDE 0.9% 1000 ML 1,000 ML ONE (13:28)
[2020-05-28 14:54] VITALS: BP 169/115
== END 2020-05-28 13:45 | disposition admitted as inpatient to this hospital (09) ==
LOC: ED 10:26
DX: I63.9 Cerebral infarction, unspecified (principal); I66.01 Occlusion and stenosis of right middle cerebral artery; I11.0 Hypertensive heart disease with heart failure; I50.9 Heart failure, unspecified; E11.9 Type 2 diabetes mellitus without complications; M19.90 Unspecified osteoarthritis, unspecified site; J45.909 Unspecified asthma, uncomplicated; Z79.899 Other long term (current) drug therapy; Z79.4 Long term (current) use of insulin
CPT/HCPCS: 36415; 70450; 70496; 70498; 71045; 80048; 80076; 82962; 83880; 84484; 85025; 85610; 85670; 85730; 93005; 96365; 96366; 96375; 99291; 99292; J7030; J7050; Q9967; J1815; J2997